=== PATIENT | female | born 1995 | race Caucasian/White ===

== ENCOUNTER 2018-06-18 15:45 | Emergency (ER) | payer BC ==
[2018-06-18 16:07] VITALS: BP 144/83
[2018-06-18] MEDS ORDERED: Phenergan 25 MG INJ ONE (16:08)
[2018-06-18] MEDS ORDERED: Sodium Chloride 0.9% 1000 ML 1,000 ML ONE (16:08)
[2018-06-18] MEDS ORDERED: Phenergan 25 MG INJ IV ONE (16:11)
[2018-06-18] MEDS ORDERED: TORAdol 30 mg Injection IV ONE (16:11)
[2018-06-18] MEDS ORDERED: Hydromorphone 1 mg/ml Ampule IV ONE (16:11)
[2018-06-18] MEDS ORDERED: Zofran 4 MG/2 ML VIAL IV ONE (16:11)
[2018-06-18] MEDS ORDERED: Sodium Chloride 0.9% 1000 ML 1,000 ML IV STA (16:11)
--- NOTE | 2018-06-18 16:11 | ERPHSYRPT ---
- History of Present Illness Time Seen by Provider: 06/18/18 16:05 Historian: patient, family Exam Limitations: no limitations Physician History: The patient is a 22-year-old female with parents complaining of a sudden onset of right sided flank and abdominal pain that began 2 hours ago. She takes control pills and does not think she is . She has been vomiting due to the pain. She feels like she has to urinate but is not able to very well. She has no past medical history except for depression. Her father states that he had appendicitis at her age and his father had appendicitis at the same age. Timing/Duration: today, hour(s) (2), sudden, worse Activities at Onset: none Quality: stabbing Abdominal Pain Onset Location: RLQ, flank (right) Severity of Pain-Max: severe Severity of Pain-Current: severe Modifying Factors: Improves With: vomiting Associated Symptoms: nausea, vomiting Previous symptoms: no prior history Allergies/Adverse Reactions: No Known Drug Allergies Allergy (Verified 06/18/18 16:07) Home Medications: No Home Meds [No Home Meds] 10/22/12 [History] Hx Influenza Vaccination/Date Given: No Hx Pneumococcal Vaccination/Date Given: No - Review of Systems Constitutional: No Fever, No Chills Eyes: No Symptoms Ears, Nose, & Throat: No Symptoms Respiratory: No Cough, No Dyspnea Cardiac: No Chest Pain, No Edema, No Syncope Abdominal/Gastrointestinal: Abdominal Pain, Nausea, Vomiting Genitourinary Symptoms: Hesitancy, No Dysuria Musculoskeletal: No Back Pain, No Neck Pain Skin: No Rash Neurological: No Dizziness, No Focal Weakness, No Sensory Changes Psychological: No Symptoms Endocrine: No Symptoms Hematologic/Lymphatic: No Symptoms Immunological/Allergic: No Symptoms All Other Systems: Reviewed and Negative - Past Medical History Pertinent Past Medical History: No Neurological History: No Pertinent History ENT History: No Pertinent History Cardiac History: No Pertinent History Respiratory History: No Pertinent History Endocrine Medical History: No Pertinent History Musculoskeletal History: No Pertinent History GI Medical History: No Pertinent History History: No Pertinent History Psycho-Social History: No Pertinent History Female Reproductive Disorders: No Pertinent History - Past Surgical History Past Surgical History: No - Social History Smoking Status: Never smoker Exposure to second hand smoke: No Drug Use: none Patient Lives Alone: No - Nursing Vital Signs Nursing Vital Signs: Initial Vital Signs Temperature 98.4 F 06/18/18 15:56 Pulse Rate 97 H 06/18/18 15:56 Respiratory Rate 20 06/18/18 15:56 Blood Pressure 144/83 06/18/18 15:56 O2 Sat by Pulse Oximetry 96 06/18/18 15:56 Pain Scale Pain Intensity 10 - Physical Exam General Appearance: moderate distress Eye Exam: PERRL/EOMI, eyes nml inspection Ears, Nose, Throat Exam: normal ENT inspection, pharynx normal, moist mucous membranes Neck Exam: normal inspection, non-tender, supple, full range of motion Respiratory Exam: normal breath sounds, lungs clear, No respiratory distress Cardiovascular Exam: regular rate/rhythm, normal heart sounds Gastrointestinal/Abdomen Exam: tenderness (right flank, RLQ) Pelvic Exam: not done Rectal Exam: not done Back Exam: normal inspection, normal range of motion, No CVA tenderness, No vertebral tenderness Extremity Exam: normal inspection, normal range of motion, pelvis stable Neurologic Exam: alert, oriented x 3, cooperative, normal mood/affect, nml cerebellar function, sensation nml, No motor deficits Skin Exam: normal color, warm, dry SpO2 Interpretation: normal Oxygen Delivery: Room Air - CT Exams Abdomen/Pelvis CT Interpretation: Tele-radiologist Report (per Dr Price), Other (5 mm calculus in distal right ureter with mild hydronephrosis) Ordered Tests: Active Orders 24 hr Category Date Time Status Clean Catch Urine Specimen STAT Care 06/18/18 16:11 Active IV Insertion STAT Care 06/18/18 16:11 Active ABDOMEN AND PELVIS W/0 CONTRAS [CT] Stat Exams 06/18/18 16:12 Taken CBC W DIFF Stat Lab 06/18/18 16:11 Completed CMP Stat Lab 06/18/18 16:11 Completed HCG QUALITATIVE,SERUM Stat Lab 06/18/18 Completed LIPASE Stat Lab 06/18/18 16:11 Completed Lactic Acid Stat Lab 06/18/18 16:18 Completed UA W/RFX UR CULTURE Stat Lab 06/18/18 16:12 Uncollected Urine Triage Profile Stat Lab 06/18/18 16:12 Uncollected Medication Summary Discontinued Medications Generic Name Dose Route Start Last Admin Trade Name Freq PRN Reason Stop Dose Admin Hydromorphone HCl 1 mg 06/18/18 16:11 06/18/18 16:22 Hydromorphone 1 Mg/Ml Ampule IV 06/18/18 16:12 1 mg STAT ONE Administration Hydromorphone HCl Confirm 06/18/18 16:14 Hydromorphone 1 Mg/Ml Ampule Administered 06/18/18 16:15 Dose 1 mg .ROUTE .STK-MED ONE Sodium Chloride Confirm 06/18/18 16:08 Sodium Chloride 0.9% 1000 Ml Administered 06/18/18 16:09 Dose 1,000 mls @ ud .ROUTE .STK-MED ONE Sodium Chloride 1,000 mls @ 999 mls/hr 06/18/18 16:11 06/18/18 16:16 Sodium Chloride 0.9% 1000 Ml IV 06/18/18 17:11 999 mls/hr .Q1H1M STA Administration Ketorolac Tromethamine 30 mg 06/18/18 16:11 06/18/18 16:21 Toradol 30 Mg Injection IV 06/18/18 16:12 30 mg STAT ONE Administration Ketorolac Tromethamine Confirm 06/18/18 16:14 Toradol 30 Mg Injection Administered 06/18/18 16:15 Dose 30 mg .ROUTE .STK-MED ONE Ondansetron HCl 4 mg 06/18/18 16:11 06/18/18 16:35 Zofran 4 Mg/2 Ml Vial IV 06/18/18 16:12 4 mg STAT ONE Administration Ondansetron HCl Confirm 06/18/18 16:34 Zofran 4 Mg/2 Ml Vial Administered 06/18/18 16:35 Dose 4 mg .ROUTE .STK-MED ONE Promethazine HCl Confirm 06/18/18 16:08 Phenergan 25 Mg Inj Administered 06/18/18 16:09 Dose 25 mg .ROUTE .STK-MED ONE Promethazine HCl 12.5 mg 06/18/18 16:11 06/18/18 16:16 Phenergan 25 Mg Inj IV 06/18/18 16:12 12.5 mg STAT ONE Administration Tamsulosin HCl 0.4 mg 06/18/18 16:13 06/18/18 16:24 Flomax 0.4 Mg PO 06/18/18 16:14 0.4 mg DAILY STA Administration Tamsulosin HCl Confirm 06/18/18 16:14 Flomax 0.4 Mg Administered 06/18/18 16:15 Dose 0.4 mg .ROUTE .STK-MED ONE Lab/Rad Data: Laboratory Result Diagrams 06/18/18 16:11 06/18/18 16:11 Laboratory Results 06/18/18 06/18/18 06/18/18 Range/Units Unknown 16:18 16:11 WBC (4.0-10.5) K/mm3 RBC (4.1-5.4) M/mm3 Hgb (12.0-16.0) gm/dl Hct (35-47) % MCV (78-100) fl MCH (26-32) pg MCHC (32-36) g/dl RDW (11.5-14.0) % Plt Count (150-450) K/mm3 MPV (6-9.5) fl Gran % (36.0-66.0) % Eos # (Auto) (0-0.5) Absolute Lymphs (auto) (1.0-4.6) Absolute Monos (auto) (0.0-1.3) Lymphocytes % (24.0-44.0) % Monocytes % (0.0-12.0) % Eosinophils % (0.00-5.0) % Basophils % (0.0-0.4) % Absolute Granulocytes (1.4-6.9) Basophils # (0-0.4) Sodium 139 (137-145) mmol/L Potassium 3.5 (3.5-5.1) mmol/L Chloride 105 (98-107) mmol/L Carbon Dioxide 25 (22-30) mmol/L Anion Gap 13.1 (5-15) MEQ/L BUN 6 L (7-17) mg/dL Creatinine 0.67 (0.52-1.04) mg/dL Estimated GFR > 60.0 ML/MIN Glucose 87 (74-106) mg/dL Lactic Acid 0.8 (0.4-2.0) Calcium 9.4 (8.4-10.2) mg/dL Total Bilirubin 0.50 (0.2-1.3) mg/dL AST 20 (14-36) U/L ALT 15 (0-35) U/L Alkaline Phosphatase 56 (38-126) U/L Serum Total Protein 7.5 (6.3-8.2) g/dL Albumin 4.6 (3.5-5.0) g/dL Lipase 42 (23-300) U/L Serum , Qual NEGATIVE (Negative) 06/18/18 Range/Units 16:11 WBC 10.5 (4.0-10.5) K/mm3 RBC 4.58 (4.1-5.4) M/mm3 Hgb 14.0 (12.0-16.0) gm/dl Hct 41.1 (35-47) % MCV 89.7 (78-100) fl MCH 30.6 (26-32) pg MCHC 34.1 (32-36) g/dl RDW 13.4 (11.5-14.0) % Plt Count 300 (150-450) K/mm3 MPV 10.2 H (6-9.5) fl Gran % 52.8 (36.0-66.0) % Eos # (Auto) 0.17 (0-0.5) Absolute Lymphs (auto) 3.70 (1.0-4.6) Absolute Monos (auto) 1.04 (0.0-1.3) Lymphocytes % 35.4 (24.0-44.0) % Monocytes % 9.9 (0.0-12.0) % Eosinophils % 1.6 (0.00-5.0) % Basophils % 0.3 (0.0-0.4) % Absolute Granulocytes 5.52 (1.4-6.9) Basophils # 0.03 (0-0.4) Sodium (137-145) mmol/L Potassium (3.5-5.1) mmol/L Chloride (98-107) mmol/L Carbon Dioxide (22-30) mmol/L Anion Gap (5-15) MEQ/L BUN (7-17) mg/dL Creatinine (0.52-1.04) mg/dL Estimated GFR ML/MIN Glucose (74-106) mg/dL Lactic Acid (0.4-2.0) Calcium (8.4-10.2) mg/dL Total Bilirubin (0.2-1.3) mg/dL AST (14-36) U/L ALT (0-35) U/L Alkaline Phosphatase (38-126) U/L Serum Total Protein (6.3-8.2) g/dL Albumin (3.5-5.0) g/dL Lipase (23-300) U/L Serum , Qual (Negative) - Progress Progress: improved Counseled pt/family regarding: lab results, diagnosis, need for follow-up, rad results - Departure Time of Disposition: 18:48 Departure Disposition: Home Clinical Impression: Kidney stone on right side Condition: Stable Critical Care Time: No Referrals: ADEN RIVERO [Primary Care Provider] - Additional Instructions: You have a kidney stone that is in your distal right ureter. It is very close to passing into your bladder. You were given Toradol 30 mg, Phenergan 12-1/2 mg , dilaudid 1 mg and fluids by IV, and Flomax 0.4 mg orally in the ER. Take [place] one to 2 tablets every 4-6 hours as needed for pain. Take Zofran 4 mg every 6 hours as needed. Stay well hydrated. Strain your urine to catch the stone. Bring the stone to your primary medical doctor for further evaluation. Prescriptions: Ondansetron ODT 4 MG [Zofran Odt 4 mg] 1 tab PO Q6H PRN PRN #10 tab.rapdis PRN Reason: Nausea/Vomiting Hydrocodone/APAP 5/325 [[place] 5/325 mg] 1 each PO Q4-6HPRN PRN #10 tablet MDD 6 PRN Reason: Pain
[2018-06-18] MEDS ORDERED: Flomax 0.4 MG PO STA (16:13)
[2018-06-18] MEDS ORDERED: Hydromorphone 1 mg/ml Ampule ONE (16:14)
[2018-06-18] MEDS ORDERED: TORAdol 30 mg Injection ONE (16:14)
[2018-06-18] MEDS ORDERED: Flomax 0.4 MG ONE (16:14)
[2018-06-18 16:23] LABS: BASOPHIL % 0.3 % (0.0-0.4); Basophil (Absolute #) 0.03 (0-0.4); Eosinophil % 1.6 % (0.00-5.0); Eosinophil (Absolute #) 0.17 (0-0.5); Granulocyte Absolute (ANC) 5.52 (1.4-6.9); Granulocytes % 52.8 % (36.0-66.0); Hematocrit 41.1 % (35-47); Lymphocytes % 35.4 % (24.0-44.0); Mean Cell Volume 89.7 fl (78-100); Mean Corpuscular Hemoglobin 30.6 pg (26-32); Mean Corpuscular Hgb Concent. 34.1 g/dl (32-36); Mean Platelet Volume 10.2 fl (6-9.5); Monocyte (Absolute #) 1.04 (0.0-1.3); Monocytes % 9.9 % (0.0-12.0); Platelet Count 300 K/mm3 (150-450); Red Blood Count 4.58 M/mm3 (4.1-5.4); Red Cell Distribution Width 13.4 % (11.5-14.0); White Blood Count 10.5 K/mm3 (4.0-10.5)
[2018-06-18] MEDS ORDERED: Zofran 4 MG/2 ML VIAL ONE (16:34)
[2018-06-18 16:36] LABS: ALBUMIN 4.6 g/dL (3.5-5.0); ALKALINE PHOSPHATASE 56 U/L (38-126); ANION GAP 13.1 MEQ/L (5-15); BLOOD UREA NITROGEN 6 mg/dL (7-17); CHLORIDE 105 mmol/L (98-107); Calcium 9.4 mg/dL (8.4-10.2); Carbon Dioxide 25 mmol/L (22-30); Creatinine 1 0.67 mg/dL (0.52-1.04); Glucose 87 mg/dL (74-106); LIPASE 42 U/L (23-300); Potassium 3.5 mmol/L (3.5-5.1); SGOT/AST 20 U/L (14-36); SGPT/ALT 15 U/L (0-35); SODIUM 139 mmol/L (137-145); Total Protein 7.5 g/dL (6.3-8.2)
[2018-06-18 19:11] VITALS: PULSE 81; O2SAT 99
--- NOTE | 2018-06-19 08:37 | XRAY ---
Indication: Flank pain. Multiple contiguous axial images obtained through the abdomen and pelvis without contrast as ordered. Comparison: None Lung bases demonstrates minimal bibasilar dependent atelectasis and left base calcified granuloma. Heart is not enlarged. There is a 5-6 mm distal right ureteral calculus just proximal to the UVJ. Proximal right ureter prominent up to 8 mm along with mild hydronephrosis consistent with obstructive uropathy. Additional right renal punctate calculus and nonobstructing left nephrocalcinosis. Noncontrasted stomach and bowel loops appear nonobstructed. Normal appendix. No free fluid/air. A few calcified splenic granulomas. Remaining liver, gallbladder, pancreas, spleen, adrenal glands, kidneys, ureters, bladder, uterus, and aorta appear unremarkable for noncontrast exam. Osseous structures intact. Impression: 5-6 mm distal right ureteral calculus producing obstructive uropathy as detailed. Additional bilateral nephrocalcinosis. CT DI 11.48
== END 2018-06-18 19:19 | disposition home or self-care (01) ==
LOC: ED 15:45
DX: N13.2 Hydronephrosis with renal and ureteral calculous obstruction (principal); R11.2 Nausea with vomiting, unspecified
CPT/HCPCS: 36000; 36415; 74176; 80053; 83605; 83690; 84703; 85025; 96360; 96374; 96375; 99284; J1170; J1885; J2405; J2550; A9270-GY

== ENCOUNTER 2019-10-12 01:03 | Emergency (ER) | payer BC ==
[2019-10-12] MEDS ORDERED: Sodium Chloride 0.9% 1000 ML 1,000 ML IV STA (01:32)
[2019-10-12] MEDS ORDERED: Zofran 4 MG/2 ML VIAL IV ONE (01:32)
--- NOTE | 2019-10-12 01:32 | ERPHSYRPT ---
- History of Present Illness Time Seen by Provider: 10/12/19 01:31 Historian: patient Exam Limitations: no limitations Patient Subjective Stated Complaint: pt states that she had intercoarse with boyfriend and soon after felf severe pain and cramping in lower abdominal pain and low back.states lower abdominal area is tender Triage Nursing Assessment: pt states she has a history of kidney stones, pt states pain is 2/10 right now but has gotten better since she left to come to the er. Physician History: 24 y/o white female presents with 2 day h/o bilat flank pain. pain shifted to suprapubic region. 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 no vag bleeding or discharge. no n/v/d Timing/Duration: day(s) (2) Activities at Onset: none Quality: sharpness, stabbing Abdominal Pain Onset Location: suprapubic Pain Radiation: no radiation Severity of Pain-Max: moderate Severity of Pain-Current: mild Modifying Factors: Improves With: nothing Associated Symptoms: denies symptoms Previous symptoms: no prior history Allergies/Adverse Reactions: No Known Drug Allergies Allergy (Verified 10/12/19 01:24) Home Medications: ARIPiprazole [Aripiprazole] 2 mg PO DAILY 10/12/19 [History] Duloxetine HCl 30 mg PO DAILY 10/12/19 [History] Hx Tetanus, Diphtheria Vaccination/Date Given: Yes Hx Influenza Vaccination/Date Given: No Hx Pneumococcal Vaccination/Date Given: No Immunizations Up to Date: Yes - Review of Systems Constitutional: No Symptoms Eyes: No Symptoms Ears, Nose, & Throat: No Symptoms Respiratory: No Symptoms Cardiac: No Symptoms Abdominal/Gastrointestinal: Abdominal Pain (bilat suprapubic), No Nausea, No Vomiting, No Diarrhea Genitourinary Symptoms: No Symptoms Musculoskeletal: No Symptoms Skin: No Symptoms Neurological: No Symptoms Psychological: No Symptoms Endocrine: No Symptoms Hematologic/Lymphatic: No Symptoms Immunological/Allergic: No Symptoms All Other Systems: Reviewed and Negative - Past Medical History Pertinent Past Medical History: No Neurological History: No Pertinent History ENT History: No Pertinent History Cardiac History: No Pertinent History Respiratory History: No Pertinent History Endocrine Medical History: No Pertinent History Musculoskeletal History: No Pertinent History GI Medical History: No Pertinent History History: No Pertinent History Psycho-Social History: No Pertinent History Female Reproductive Disorders: No Pertinent History Other Medical History: depression and anxiety, bipolar - Past Surgical History Past Surgical History: No Neuro Surgical History: No Pertinent History Cardiac: No Pertinent History Respiratory: No Pertinent History Gastrointestinal: No Pertinent History Genitourinary: No Pertinent History Musculoskeletal: No Pertinent History Female Surgical History: No Pertinent History - Social History Smoking Status: Current every day smoker How long have you smoked: 6 Exposure to second hand smoke: No Drug Use: none Patient Lives Alone: No - Female History Hx Last Menstrual Period: 09/10/19 Hx Now: (unknown) - Nursing Vital Signs Nursing Vital Signs: Initial Vital Signs Temperature 98.2 F 10/12/19 01:09 Pulse Rate 97 H 10/12/19 01:09 Respiratory Rate 18 10/12/19 01:09 Blood Pressure 109/75 10/12/19 01:09 O2 Sat by Pulse Oximetry 100 10/12/19 01:09 Pain Scale Pain Intensity 2 - Physical Exam General Appearance: no apparent distress, alert, anxiety Eye Exam: PERRL/EOMI, eyes nml inspection Ears, Nose, Throat Exam: normal ENT inspection, moist mucous membranes Neck Exam: normal inspection, non-tender, supple, full range of motion Respiratory Exam: normal breath sounds, lungs clear, airway intact, No chest tenderness, No respiratory distress Cardiovascular Exam: regular rate/rhythm, normal heart sounds, normal peripheral pulses Gastrointestinal/Abdomen Exam: soft, normal bowel sounds, tenderness (suprapubic ), No guarding, No rebound Pelvic Exam: not done Rectal Exam: not done Back Exam: normal inspection, normal range of motion, No CVA tenderness, No vertebral tenderness Extremity Exam: normal inspection, normal range of motion, pelvis stable Neurologic Exam: alert, oriented x 3, 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, 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 Skin Exam: normal color, warm, dry Lymphatic Exam: No adenopathy SpO2 Interpretation: normal SpO2: 100 O2 Delivery: Room Air - Course Nursing assessment & vital signs reviewed: Yes Ordered Tests: Active Orders 24 hr Category Date Time Status IV Insertion STAT Care 10/12/19 01:32 Active ABDOMEN AND PELVIS W/0 CONTRAS [CT] Stat Exams 10/12/19 01:32 Taken AMYLASE Stat Lab 10/12/19 01:44 Completed CBC W DIFF Stat Lab 10/12/19 01:44 Completed CMP Stat Lab 10/12/19 01:44 Completed CULTURE,URINE Stat Lab 10/12/19 01:44 Received HCG,QUALITATIVE URINE Stat Lab 10/12/19 01:44 Completed LIPASE Stat Lab 10/12/19 01:44 Completed Lactic Acid Stat Lab 10/12/19 01:32 Completed UA W/RFX UR CULTURE Stat Lab 10/12/19 01:44 Completed Medication Summary Discontinued Medications Generic Name Dose Route Start Last Admin Trade Name Celestine PRN Reason Stop Dose Admin Sodium Chloride 1,000 mls @ 999 mls/hr 10/12/19 01:32 10/12/19 01:47 Sodium Chloride 0.9% 1000 Ml IV 10/12/19 02:32 999 mls/hr .Q1H1M STA Administration Sodium Chloride Confirm 10/12/19 01:44 Sodium Chloride 0.9% 1000 Ml Administered 10/12/19 01:45 Dose 1,000 mls @ ud .ROUTE .STK-MED ONE Ondansetron HCl 4 mg 10/12/19 01:32 10/12/19 01:47 Zofran 4 Mg/2 Ml Vial IV 10/12/19 01:33 4 mg STAT ONE Administration Ondansetron HCl Confirm 10/12/19 01:44 Zofran 4 Mg/2 Ml Vial Administered 10/12/19 01:45 Dose 4 mg .ROUTE .STK-MED ONE Lab/Rad Data: Laboratory Result Diagrams 10/12/19 01:44 10/12/19 01:44 Laboratory Results 10/12/19 10/12/19 10/12/19 Range/Units 01:44 01:44 01:44 WBC (4.0-10.5) K/mm3 RBC (4.1-5.4) M/mm3 Hgb (12.0-16.0) gm/dl Hct (35-47) % MCV (78-100) fl MCH (26-32) pg MCHC (32-36) g/dl RDW (11.5-14.0) % Plt Count (150-450) K/mm3 MPV (7.5-11.0) fl Gran % (36.0-66.0) % Eos # (Auto) (0-0.5) Absolute Lymphs (auto) (1.0-4.6) Absolute Monos (auto) (0.0-1.3) Lymphocytes % (24.0-44.0) % Monocytes % (0.0-12.0) % Eosinophils % (0.00-5.0) % Basophils % (0.0-0.4) % Absolute Granulocytes (1.4-6.9) Basophils # (0-0.4) Sodium 139 (137-145) mmol/L Potassium 3.3 L (3.5-5.1) mmol/L Chloride 104 (98-107) mmol/L Carbon Dioxide 26 (22-30) mmol/L Anion Gap 12.7 (5-15) MEQ/L BUN 10 (7-17) mg/dL Creatinine 0.62 (0.52-1.04) mg/dL Estimated GFR > 60.0 ML/MIN Glucose 91 (74-106) mg/dL Lactic Acid (0.4-2.0) Calcium 9.8 (8.4-10.2) mg/dL Total Bilirubin 0.60 (0.2-1.3) mg/dL AST 26 (14-36) U/L ALT 20 (0-35) U/L Alkaline Phosphatase 74 (38-126) U/L Serum Total Protein 8.2 (6.3-8.2) g/dL Albumin 4.7 (3.5-5.0) g/dL Amylase 113 H (30-110) U/L Lipase 102 (23-300) U/L Urine Color YELLOW (YELLOW) Urine Appearance SLIGHTLY CLOUDY (CLEAR) Urine pH 7.0 (5-6) Ur Specific [place] 1.013 (1.005-1.025) Urine Protein NEGATIVE (Negative) Urine Ketones NEGATIVE (NEGATIVE) Urine Blood SMALL (0-5) Dominick/ul Urine Nitrite NEGATIVE (NEGATIVE) Urine Bilirubin NEGATIVE (NEGATIVE) Urine Urobilinogen NEGATIVE (0-1) mg/dL Ur Leukocyte Esterase TRACE (NEGATIVE) Urine WBC (Auto) 3-5 (0-5) /HPF Urine RBC (Auto) 3-5 (0-2) /HPF U Epithel Cells (Auto) RARE (FEW) /HPF Urine Bacteria (Auto) NONE SEEN (NEGATIVE) /HPF Amorphous Crystals FEW (NEGATIVE) /HPF Urine Sperm (Auto) PRESENT (NEGATIVE) /HPF Urine Culture Reflexed YES (NO) Urine Glucose NEGATIVE (NEGATIVE) mg/dL Urine HCG, Qual NEGATIVE (Negative) 01/11/20 01/11/20 Range/Units 01:44 01:32 WBC 12.0 H (4.0-10.5) K/mm3 RBC 4.81 (4.1-5.4) M/mm3 Hgb 14.5 (12.0-16.0) gm/dl Hct 42.3 (35-47) % MCV 87.9 (78-100) fl MCH 30.1 (26-32) pg MCHC 34.3 (32-36) g/dl RDW 13.4 (11.5-14.0) % Plt Count 273 (150-450) K/mm3 MPV 10.1 (7.5-11.0) fl Gran % 53.7 (36.0-66.0) % Eos # (Auto) 0.28 (0-0.5) Absolute Lymphs (auto) 3.93 (1.0-4.6) Absolute Monos (auto) 1.31 H (0.0-1.3) Lymphocytes % 32.8 (24.0-44.0) % Monocytes % 10.9 (0.0-12.0) % Eosinophils % 2.3 (0.00-5.0) % Basophils % 0.3 (0.0-0.4) % Absolute Granulocytes 6.44 (1.4-6.9) Basophils # 0.03 (0-0.4) Sodium (137-145) mmol/L Potassium (3.5-5.1) mmol/L Chloride (98-107) mmol/L Carbon Dioxide (22-30) mmol/L Anion Gap (5-15) MEQ/L BUN (7-17) mg/dL Creatinine (0.52-1.04) mg/dL Estimated GFR ML/MIN Glucose (74-106) mg/dL Lactic Acid 1.6 (0.4-2.0) Calcium (8.4-10.2) mg/dL Total Bilirubin (0.2-1.3) mg/dL AST (14-36) U/L ALT (0-35) U/L Alkaline Phosphatase (38-126) U/L Serum Total Protein (6.3-8.2) g/dL Albumin (3.5-5.0) g/dL Amylase (30-110) U/L Lipase (23-300) U/L Urine Color (YELLOW) Urine Appearance (CLEAR) Urine pH (5-6) Ur Specific [place] (1.005-1.025) Urine Protein (Negative) Urine Ketones (NEGATIVE) Urine Blood (0-5) Dominick/ul Urine Nitrite (NEGATIVE) Urine Bilirubin (NEGATIVE) Urine Urobilinogen (0-1) mg/dL Ur Leukocyte Esterase (NEGATIVE) Urine WBC (Auto) (0-5) /HPF Urine RBC (Auto) (0-2) /HPF U Epithel Cells (Auto) (FEW) /HPF Urine Bacteria (Auto) (NEGATIVE) /HPF Amorphous Crystals (NEGATIVE) /HPF Urine Sperm (Auto) (NEGATIVE) /HPF Urine Culture Reflexed (NO) Urine Glucose (NEGATIVE) mg/dL Urine HCG, Qual (Negative) - Progress Progress: improved Progress Note: 10/12/19 03:00 pt states she has very little pain now. does not want any pain meds now. ct abd/pelvis-picture c/w cystitis. bilat nonobstructing nephrolithiasis Counseled pt/family regarding: lab results, diagnosis, need for follow-up, rad results - Departure Departure Disposition: Home Clinical Impression: UTI (urinary tract infection), Cystitis Condition: Stable Critical Care Time: No Referrals: ADEN RIVERO [Primary Care Provider] - Additional Instructions: drink plenty of fluids. tylenol and ibuprofen for further management of pain. follow up with primary doctor for persistent symptoms Prescriptions: Ciprofloxacin [Cipro 500 MG] 500 mg PO BID #14 tablet
[2019-10-12] MEDS ORDERED: Sodium Chloride 0.9% 1000 ML 1,000 ML ONE (01:44)
[2019-10-12] MEDS ORDERED: Zofran 4 MG/2 ML VIAL ONE (01:44)
[2019-10-12 01:48] LABS: Absolute Neutrophil Ct (ANC) 6.44 (1.4-6.9); BASOPHIL % 0.3 % (0.0-0.4); Basophil (Absolute #) 0.03 (0-0.4); Eosinophil % 2.3 % (0.00-5.0); Eosinophil (Absolute #) 0.28 (0-0.5); Hematocrit 42.3 % (35-47); Hemoglobin 14.5 gm/dl (12.0-16.0); Lymphocyte (Absolute #) 3.93 (1.0-4.6); Lymphocytes % 32.8 % (24.0-44.0); Mean Cell Volume 87.9 fl (78-100); Mean Corpuscular Hemoglobin 30.1 pg (26-32); Mean Corpuscular Hgb Concent. 34.3 g/dl (32-36); Mean Platelet Volume 10.1 fl (7.5-11.0); Monocyte (Absolute #) 1.31 (0.0-1.3); Monocytes % 10.9 % (0.0-12.0); Neutrophil % 53.7 % (36.0-66.0); Platelet Count 273 K/mm3 (150-450); Red Blood Count 4.81 M/mm3 (4.1-5.4); Red Cell Distribution Width 13.4 % (11.5-14.0)
[2019-10-12 01:53] LABS: Amourphous Crystal FEW /HPF (NEGATIVE); Appearance SLIGHTLY CLOUDY (CLEAR); Bilirubin NEGATIVE (NEGATIVE); Blood SMALL Ery/ul (0-5); Epithelial Cells RARE /HPF (FEW); Glucose NEGATIVE (NEGATIVE); Ketones NEGATIVE (NEGATIVE); Leukocyte Esterase TRACE (NEGATIVE); Nitrite NEGATIVE (NEGATIVE); Protein,Urine Dip NEGATIVE (Negative); Specific Gravity 1.013 (1.005-1.025); Sperm PRESENT /HPF (NEGATIVE); Urobilinogen NEGATIVE mg/dL (0-1)
[2019-10-12 01:54] LABS: Bacteria NONE SEEN /HPF (NEGATIVE)
[2019-10-12 01:59] LABS: ALBUMIN 4.7 g/dL (3.5-5.0); ALKALINE PHOSPHATASE 74 U/L (38-126); AMYLASE 113 U/L (30-110); ANION GAP 12.7 MEQ/L (5-15); BLOOD UREA NITROGEN 10 mg/dL (7-17); CHLORIDE 104 mmol/L (98-107); Calcium 9.8 mg/dL (8.4-10.2); Carbon Dioxide 26 mmol/L (22-30); Creatinine 1 0.62 mg/dL (0.52-1.04); Glucose 91 mg/dL (74-106); LIPASE 102 U/L (23-300); Potassium 3.3 mmol/L (3.5-5.1); SGOT/AST 26 U/L (14-36); SGPT/ALT 20 U/L (0-35); SODIUM 139 mmol/L (137-145); Total Protein 8.2 g/dL (6.3-8.2)
[2019-10-12] MEDS ORDERED: ROCEPHIN 1 Gm-D5w 50 ml Bag** 1 G/50 ML IVPB IV STA (02:55)
[2019-10-12] MEDS ORDERED: ROCEPHIN 1 Gm-D5w 50 ml Bag** 1 G/50 ML IVPB IV ONE (02:59)
[2019-10-12 03:30] VITALS: BP 102/79; PULSE 75; O2SAT 99
--- NOTE | 2019-10-12 07:13 | XRAY ---
Indication: Pelvic and low back pain 2 days. Frequent urination and dysuria. Elevated WBC. Multiple contiguous axial images obtained through the abdomen and pelvis without contrast as ordered. Comparison: June 18, 2018. Lung bases are clear. Heart is not enlarged. Noncontrasted stomach and bowel loops appear nonobstructed. Normal appendix. There is now mild scattered colonic fecal debris throughout including the rectum. No free fluid/air. Right renal collecting system now demonstrates minimal haziness, possible inflammatory/infectious process. Remaining liver, gallbladder, pancreas, spleen, adrenal glands, kidneys, ureters, bladder, uterus, and aorta appear unremarkable for noncontrast exam. Osseous structures intact. Impression: 1. Mild fecal stasis without obstruction. 2. Right renal collecting system haziness. Rule out underlying inflammatory/infectious process. 3. Remaining CT abdomen/pelvis without contrast exam is negative. Comment: Preliminary interpretation was made by [facility]. No critical discrepancy.
== END 2019-10-12 03:29 | disposition home or self-care (01) ==
LOC: ED 01:03
DX: N30.90 Cystitis, unspecified without hematuria (principal)
CPT/HCPCS: 36000; 36415; 74176; 80053; 81001; 82150; 83605; 83690; 84703; 85025; 87086; 96365; 96374; 99284; J0696; J2405

== ENCOUNTER 2020-02-24 12:42 | Emergency (ER) | payer BC ==
[2020-02-24] MEDS ORDERED: Pepcid 20 MG VIAL IV ONE ×2 (13:21→13:29)
[2020-02-24] MEDS ORDERED: Zofran 4 MG/2 ML VIAL IV ONE (13:21)
[2020-02-24] MEDS ORDERED: Sodium Chloride 0.9% 1000 ML 1,000 ML IV STA (13:21)
[2020-02-24] MEDS ORDERED: TYLENOL 325 MG PO ONE (13:21)
--- NOTE | 2020-02-24 13:23 | ERPHSYRPT ---
- History of Present Illness Time Seen by Provider: 02/24/20 13:12 Source: patient Exam Limitations: no limitations Patient Subjective Stated Complaint: Vomiting Triage Nursing Assessment: Patient brought back to ED via w/c and transferred self to bed. Patient A+O X3. Patient's skin pink, warm and dry. Patient complains of vomiting for the past 4 days. Patient states she has been having diarrhea for 5 days. Patient's abdomen soft and round with BS X 4 present. Patient is currently 12 weeks . Patient also complains of dizziness. Physician History: 24 years old 2 para 0 at 12 weeks gestation presented in the ER with 3 to 4 days history of diarrhea and vomiting intermittently for the last 2 days, nonbilious, nonprojectile with no hematemesis. Patient is not able to hold much down. She has occasional upper abdominal cramping. No pelvic cramping, vaginal bleeding or discharge. No fever or chills reported. Denies any sick contact. Patient is feeling fatigued and tired with no energy and at times feel dizzy and lightheaded with standing up. Timing/Duration: day(s) (2), intermittent, gradual onset, worse Severity: moderate Associated Symptoms: nausea, vomiting, abdominal pain Allergies/Adverse Reactions: No Known Drug Allergies Allergy (Verified 02/24/20 13:01) Hx Tetanus, Diphtheria Vaccination/Date Given: Yes Hx Influenza Vaccination/Date Given: Yes Hx Pneumococcal Vaccination/Date Given: No Immunizations Up to Date: Yes Travel Risk - International Travel Have you traveled outside of the country in past 3 weeks: No Have you or anyone close to you been diagnosed with or: No Do your reside in a community with a known COVID-19 case?: Yes If Yes where:: [facility] - Coronavirus Screening Has patient experienced Coronavirus symptoms: No - Review of Systems Constitutional: Fatigue Eyes: No Symptoms Ears, Nose, & Throat: No Symptoms Respiratory: No Symptoms Cardiac: No Symptoms Abdominal/Gastrointestinal: Nausea, Vomiting, Diarrhea Genitourinary Symptoms: No Symptoms Musculoskeletal: No Symptoms Neurological: No Symptoms Psychological: No Symptoms Endocrine: No Symptoms Hematologic/Lymphatic: No Symptoms Immunological/Allergic: No Symptoms - Past Medical History Pertinent Past Medical History: No Neurological History: No Pertinent History ENT History: No Pertinent History Cardiac History: No Pertinent History Respiratory History: No Pertinent History Endocrine Medical History: No Pertinent History Musculoskeletal History: No Pertinent History GI Medical History: No Pertinent History History: No Pertinent History Psycho-Social History: No Pertinent History Female Reproductive Disorders: No Pertinent History Other Medical History: depression and anxiety, bipolar - Past Surgical History Past Surgical History: No Neuro Surgical History: No Pertinent History Cardiac: No Pertinent History Respiratory: No Pertinent History Gastrointestinal: No Pertinent History Genitourinary: No Pertinent History Musculoskeletal: No Pertinent History Female Surgical History: No Pertinent History - Social History Smoking Status: Never smoker How long have you smoked: 6 Exposure to second hand smoke: No Drug Use: none Patient Lives Alone: No - Female History Hx Last Menstrual Period: end nov Hx Now: Yes Expected Date of Delivery: 09/04/20 - Nursing Vital Signs Nursing Vital Signs: Initial Vital Signs Temperature 98.8 F 02/24/20 13:03 Pulse Rate 96 H 02/24/20 13:03 Respiratory Rate 18 02/24/20 13:03 Blood Pressure 120/71 02/24/20 13:03 O2 Sat by Pulse Oximetry 97 02/24/20 13:03 Pain Scale Pain Intensity 0 - Physical Exam General Appearance: no apparent distress Eye Exam: PERRL/EOMI, eyes nml inspection Ears, Nose, Throat Exam: normal ENT inspection, pharynx normal Neck Exam: normal inspection, supple, full range of motion Respiratory Exam: normal breath sounds, lungs clear Cardiovascular Exam: regular rate/rhythm, normal heart sounds Gastrointestinal/Abdomen Exam: soft, other (Hyper active bowel sounds), No tenderness Extremity Exam: normal inspection, normal range of motion Neurologic Exam: alert, oriented x 3, cooperative Skin Exam: normal color SpO2 Interpretation: normal SpO2: 97 O2 Delivery: Room Air - Course Nursing assessment & vital signs reviewed: Yes Ordered Tests: Active Orders 24 hr Category Date Time Status IV Insertion STAT Care 02/24/20 13:21 Active AMYLASE Stat Lab 02/24/20 13:29 Completed CBC W DIFF Stat Lab 02/24/20 13:29 Completed CMP Stat Lab 02/24/20 13:29 Completed CULTURE,URINE Stat Lab 02/24/20 13:29 Received LIPASE Stat Lab 02/24/20 13:29 Completed UA W/RFX UR CULTURE Stat Lab 02/24/20 13:29 Completed Medication Summary Discontinued Medications Generic Name Dose Route Start Last Admin Trade Name Freq PRN Reason Stop Dose Admin Acetaminophen 650 mg 02/24/20 13:21 02/24/20 13:32 Tylenol 325 Mg PO 02/24/20 13:22 650 mg STAT ONE Administration Acetaminophen Confirm 02/24/20 13:29 Tylenol 325 Mg Administered 02/24/20 13:30 Dose 650 mg .ROUTE .STK-MED ONE Cephalexin HCl 500 mg 02/24/20 16:04 02/24/20 16:36 Keflex 500 Mg PO 02/24/20 16:05 500 mg STAT ONE Administration Cephalexin HCl Confirm 02/24/20 16:32 Keflex 500 Mg Administered 02/24/20 16:33 Dose 500 mg .ROUTE .STK-MED ONE Famotidine 20 mg 02/24/20 13:21 02/24/20 13:32 Pepcid 20 Mg Vial IV 02/24/20 13:22 20 mg STAT ONE Administration Famotidine Confirm 02/24/20 13:29 Pepcid 20 Mg Vial Administered 02/24/20 13:30 Dose 20 mg IV .STK-MED ONE Sodium Chloride 1,000 mls @ 999 mls/hr 02/24/20 13:21 02/24/20 14:45 Sodium Chloride 0.9% 1000 Ml IV 02/24/20 14:21 Infused .Q1H1M STA Infusion Sodium Chloride Confirm 02/24/20 13:29 Sodium Chloride 0.9% 1000 Ml Administered 02/24/20 13:30 Dose 1,000 mls @ ud .ROUTE .STK-MED ONE Ondansetron HCl 4 mg 02/24/20 13:21 02/24/20 13:32 Zofran 4 Mg/2 Ml Vial IV 02/24/20 13:22 4 mg STAT ONE Administration Ondansetron HCl Confirm 02/24/20 13:29 Zofran 4 Mg/2 Ml Vial Administered 02/24/20 13:30 Dose 4 mg .ROUTE .STK-MED ONE Lab/Rad Data: Laboratory Result Diagrams 02/24/20 13:29 02/24/20 13:29 Laboratory Results 02/24/20 02/24/20 02/24/20 Range/Units 13:29 13:29 13:29 WBC 8.2 (4.0-10.5) K/mm3 RBC 4.65 (4.1-5.4) M/mm3 Hgb 13.9 (12.0-16.0) gm/dl Hct 40.6 (35-47) % MCV 87.3 (78-100) fl MCH 29.9 (26-32) pg MCHC 34.2 (32-36) g/dl RDW 13.2 (11.5-14.0) % Plt Count 207 (150-450) K/mm3 MPV 10.5 (7.5-11.0) fl Gran % 70.3 H (36.0-66.0) % Eos # (Auto) 0.14 (0-0.5) Absolute Lymphs (auto) 1.47 (1.0-4.6) Absolute Monos (auto) 0.81 (0.0-1.3) Lymphocytes % 17.9 L (24.0-44.0) % Monocytes % 9.9 (0.0-12.0) % Eosinophils % 1.7 (0.00-5.0) % Basophils % 0.2 (0.0-0.4) % Absolute Granulocytes 5.76 (1.4-6.9) Basophils # 0.02 (0-0.4) Sodium 137 (137-145) mmol/L Potassium 3.9 (3.5-5.1) mmol/L Chloride 105 (98-107) mmol/L Carbon Dioxide 22 (22-30) mmol/L Anion Gap 13.1 (5-15) MEQ/L BUN 7 (7-17) mg/dL Creatinine 0.43 L (0.52-1.04) mg/dL Estimated GFR > 60.0 ML/MIN Glucose 83 (74-106) mg/dL Calcium 9.1 (8.4-10.2) mg/dL Total Bilirubin 0.50 (0.2-1.3) mg/dL AST 28 (14-36) U/L ALT 17 (0-35) U/L Alkaline Phosphatase 65 (38-126) U/L Serum Total Protein 7.2 (6.3-8.2) g/dL Albumin 4.0 (3.5-5.0) g/dL Amylase 100 (30-110) U/L Lipase 60 (23-300) U/L Urine Color STEVAN (YELLOW) Urine Appearance CLOUDY (CLEAR) Urine pH 5.0 (5-6) Ur Specific Matthews 1.041 (1.005-1.025) Urine Protein 100 (Negative) Urine Ketones TRACE (NEGATIVE) Urine Blood NEGATIVE (0-5) Dominick/ul Urine Nitrite NEGATIVE (NEGATIVE) Urine Bilirubin NEGATIVE (NEGATIVE) Urine Urobilinogen 2 (0-1) mg/dL Ur Leukocyte Esterase MODERATE (NEGATIVE) Urine WBC (Auto) 26-50 (0-5) /HPF Urine RBC (Auto) 3-5 (0-2) /HPF U Epithel Cells (Auto) MANY (FEW) /HPF Urine Bacteria (Auto) MODERATE (NEGATIVE) /HPF U Non-Squamous Epi Cells RARE (FEW) /HPF Urine Mucus (Auto) MANY (NEGATIVE) /HPF Urine Culture Reflexed YES (NO) Urine Glucose NEGATIVE (NEGATIVE) mg/dL - Progress Progress: improved, re-examined Progress Note: 02/24/20 she is given IV fluids along with Zofran, on reevaluation feeling much improved. She does not have any episode of vomiting or diarrhea while in the ER. heart tones in 160s. No pelvic cramping or vaginal bleeding or discharge. She does have UTI and started on antibiotics. Will give Zofran to go home and recommended outpatient follow-up. Recommended increase hydration. At this point I do not think she needs any further work-up and is stable for discharge. Counseled pt/family regarding: lab results, diagnosis, need for follow-up - Departure Departure Disposition: Home Clinical Impression: Gastroenteritis UTI in Qualifiers: Trimester: first trimester Qualified Code(s): O23.41 - Unspecified infection of urinary tract in , first trimester Condition: Stable Critical Care Time: No Referrals: ADEN RIVERO [Primary Care Provider] - (1-2 days for re evaluation) Instructions: Diarrhea and Traveler's Diarrhea -- Adult, Vomiting -- Adult Additional Instructions: Drink plenty of fluids. Take Tylenol as needed. Follow-up with your OB for reevaluation in 1 to 2 days. Continue with antibiotics. Return to ER for worsening vomiting/diarrhea or if develop abdominal pain/cramping, vaginal bleeding or discharge. Prescriptions: Ondansetron ODT 4 MG [Zofran Odt 4 mg] 4 mg PO Q6H PRN PRN #10 tab.rapdis PRN Reason: Vomiting Cephalexin Mh 500 mg [Keflex 500 mg] 500 mg PO QID #40 capsule
[2020-02-24] MEDS ORDERED: Sodium Chloride 0.9% 1000 ML 1,000 ML ONE (13:29)
[2020-02-24] MEDS ORDERED: Zofran 4 MG/2 ML VIAL ONE (13:29)
[2020-02-24] MEDS ORDERED: TYLENOL 325 MG ONE (13:29)
[2020-02-24 13:30] LABS: Absolute Neutrophil Ct (ANC) 5.76 (1.4-6.9); BASOPHIL % 0.2 % (0.0-0.4); Basophil (Absolute #) 0.02 (0-0.4); Eosinophil % 1.7 % (0.00-5.0); Eosinophil (Absolute #) 0.14 (0-0.5); Hematocrit 40.6 % (35-47); Hemoglobin 13.9 gm/dl (12.0-16.0); Lymphocyte (Absolute #) 1.47 (1.0-4.6); Lymphocytes % 17.9 % (24.0-44.0); Mean Cell Volume 87.3 fl (78-100); Mean Corpuscular Hemoglobin 29.9 pg (26-32); Mean Corpuscular Hgb Concent. 34.2 g/dl (32-36); Mean Platelet Volume 10.5 fl (7.5-11.0); Monocyte (Absolute #) 0.81 (0.0-1.3); Monocytes % 9.9 % (0.0-12.0); Neutrophil % 70.3 % (36.0-66.0); Platelet Count 207 K/mm3 (150-450); Red Blood Count 4.65 M/mm3 (4.1-5.4); Red Cell Distribution Width 13.2 % (11.5-14.0); White Blood Count 8.2 K/mm3 (4.0-10.5)
[2020-02-24 13:37] LABS: Appearance CLOUDY (CLEAR); Bacteria MODERATE /HPF (NEGATIVE); Bilirubin NEGATIVE (NEGATIVE); Blood NEGATIVE Ery/ul (0-5); Epithelial Cells MANY /HPF (FEW); Glucose NEGATIVE (NEGATIVE); Ketones TRACE (NEGATIVE); Leukocyte Esterase MODERATE (NEGATIVE); Mucus MANY /HPF (NEGATIVE); Nitrite NEGATIVE (NEGATIVE); Non-Squamous Epithelial Cells RARE /HPF (FEW); Protein,Urine Dip 100 (Negative); Specific Gravity 1.041 (1.005-1.025); Urobilinogen 2 mg/dL (0-1); WBC 26-50 /HPF (0-5)
[2020-02-24 13:43] LABS: ALKALINE PHOSPHATASE 65 U/L (38-126); AMYLASE 100 U/L (30-110); ANION GAP 13.1 MEQ/L (5-15); BLOOD UREA NITROGEN 7 mg/dL (7-17); CHLORIDE 105 mmol/L (98-107); Calcium 9.1 mg/dL (8.4-10.2); Carbon Dioxide 22 mmol/L (22-30); Creatinine 1 0.43 mg/dL (0.52-1.04); Glucose 83 mg/dL (74-106); LIPASE 60 U/L (23-300); Potassium 3.9 mmol/L (3.5-5.1); SGOT/AST 28 U/L (14-36); SGPT/ALT 17 U/L (0-35); SODIUM 137 mmol/L (137-145); Total Protein 7.2 g/dL (6.3-8.2)
[2020-02-24] MEDS ORDERED: KEFLEX 500 MG PO ONE (16:04)
[2020-02-24] MEDS ORDERED: KEFLEX 500 MG ONE (16:32)
[2020-02-24 16:43] VITALS: BP 109/70; PULSE 93
[2020-02-24 22:15] VITALS: O2SAT 97
== END 2020-02-24 16:49 | disposition home or self-care (01) ==
LOC: ED 12:42
DX: K52.9 Noninfective gastroenteritis and colitis, unspecified (principal); O23.41 Unspecified infection of urinary tract in pregnancy, first trimester
CPT/HCPCS: 36000; 36415; 80053; 81001; 82150; 83690; 85025; 87086; 96360; 96374; 96375; 99284; J2405; A9270-GY

== ENCOUNTER 2020-04-13 15:36 | Emergency (ER) | payer BC ==
[2020-04-13] MEDS ORDERED: Sodium Chloride 0.9% 1000 ML 1,000 ML IV STA (15:56)
[2020-04-13] MEDS ORDERED: Sodium Chloride 0.9% 1000 ML 1,000 ML ONE (16:21)
--- NOTE | 2020-04-13 16:33 | ERPHSYRPT ---
- History of Present Illness Time Seen by Provider: 04/13/20 15:48 Source: patient Exam Limitations: no limitations Patient Subjective Stated Complaint: Pt states "I am having abdominal cramping and back pain. I feel dizzy and not quite right.:" Triage Nursing Assessment: Pt presented alert and oriented X 3, skin pwd Pt ambulates with an upright steady gait, able to speak in clear full sentences pt in no apparent respiratory distress. 1 para0 Physician History: Patient is a 24-year-old female G1, P0, currently 19 weeks and 3 days who presents to our ED for evaluation of intermittent pelvic cramping and back pain. Patient added that she is a "little dizzy". Symptoms started today. Patient states she has been experiencing some vaginal discharge for the past 2 days. No fever. No trauma. Patient is mildly nauseous. Patient did vomit several times as well. She admits to loose stools. Patient's last ultrasound was at 6 weeks gestational age. Patient states all was normal at that time. Symptoms are mild to moderate intensity. No specific worsening or improving factors. Patient is otherwise healthy. Patient voices no other complaints at this time. Timing/Duration: today Severity: moderate Modifying Factors: Improves With: nothing Associated Symptoms: nausea, vomiting, No abdominal pain, No weakness Allergies/Adverse Reactions: No Known Drug Allergies Allergy (Verified 02/24/20 13:01) Home Medications: ARIPiprazole [Aripiprazole] 2 mg PO DAILY 04/13/20 [History] Hx Tetanus, Diphtheria Vaccination/Date Given: No Hx Influenza Vaccination/Date Given: Yes Hx Pneumococcal Vaccination/Date Given: No Immunizations Up to Date: Yes Travel Risk - International Travel Have you traveled outside of the country in past 3 weeks: No - Coronavirus Screening Are you exhibiting any of the following symptoms?: No Close contact with a COVID-19 positive Pt in past 14-21 Days: No - Review of Systems Constitutional: No Symptoms, No Fever, No Chills Eyes: No Symptoms Ears, Nose, & Throat: No Symptoms Respiratory: No Symptoms, No Cough, No Dyspnea Cardiac: No Symptoms, No Chest Pain, No Edema, No Syncope Abdominal/Gastrointestinal: No Symptoms, No Abdominal Pain, No Nausea, No Vomiting, No Diarrhea Genitourinary Symptoms: No Symptoms, No Dysuria Musculoskeletal: No Symptoms, No Back Pain, No Neck Pain Skin: No Symptoms, No Rash Neurological: No Symptoms, No Dizziness, No Focal Weakness, No Sensory Changes Psychological: No Symptoms Endocrine: No Symptoms Hematologic/Lymphatic: No Symptoms Immunological/Allergic: No Symptoms All Other Systems: Reviewed and Negative - Past Medical History Pertinent Past Medical History: No Neurological History: No Pertinent History ENT History: No Pertinent History Cardiac History: No Pertinent History Respiratory History: No Pertinent History Endocrine Medical History: No Pertinent History Musculoskeletal History: No Pertinent History GI Medical History: No Pertinent History History: No Pertinent History Psycho-Social History: No Pertinent History Female Reproductive Disorders: No Pertinent History Other Medical History: depression and anxiety, bipolar - Past Surgical History Past Surgical History: No Neuro Surgical History: No Pertinent History Cardiac: No Pertinent History Respiratory: No Pertinent History Gastrointestinal: No Pertinent History Genitourinary: No Pertinent History Musculoskeletal: No Pertinent History Female Surgical History: No Pertinent History - Social History Smoking Status: Former smoker How long have you smoked: 6 Exposure to second hand smoke: No Drug Use: none Patient Lives Alone: No - Female History Hx Last Menstrual Period: 11/26/2019 Hx Now: Yes Expected Date of Delivery: 09/04/20 - Nursing Vital Signs Nursing Vital Signs: Initial Vital Signs Temperature 98.4 F 04/13/20 15:42 Pulse Rate 104 H 04/13/20 15:42 Respiratory Rate 20 04/13/20 15:42 Blood Pressure 125/74 04/13/20 15:42 O2 Sat by Pulse Oximetry 100 04/13/20 15:42 Pain Scale Pain Intensity 2 - Physical Exam General Appearance: no apparent distress, alert Eye Exam: PERRL/EOMI, eyes nml inspection Ears, Nose, Throat Exam: normal ENT inspection, TMs normal, pharynx normal, moist mucous membranes Neck Exam: normal inspection, non-tender, supple, full range of motion Respiratory Exam: normal breath sounds, lungs clear, No respiratory distress Cardiovascular Exam: regular rate/rhythm, normal heart sounds, normal peripheral pulses Gastrointestinal/Abdomen Exam: soft, normal bowel sounds, other (Gravid abdomen.), No tenderness, No mass Pelvic Exam: normal external exam, No adnexal tenderness, No adnexal mass, No mass, No cervical motion tenderness, No vaginal bleeding, No uterine tenderness, No vaginal discharge Back Exam: normal inspection, normal range of motion, No CVA tenderness, No vertebral tenderness Extremity Exam: normal inspection, normal range of motion, pelvis stable Neurologic Exam: alert, oriented x 3, cooperative, normal mood/affect, nml cerebellar function, nml station & gait, sensation nml, No motor deficits Skin Exam: normal color, warm, dry, No rash Lymphatic Exam: No adenopathy SpO2 Interpretation: normal SpO2: 100 O2 Delivery: Room Air - Course Nursing assessment & vital signs reviewed: Yes - Radiology Ultrasound Exam OB Ultrasound: discussed w/radiologist (Single viable intrauterine with mean gestational age of 19 weeks and 4 days. Expected date of confinement is September 03, 2020 prominent cisterna magna that may be followed up later in the .) Ordered Tests: Active Orders 24 hr Category Date Time Status IV Insertion STAT Care 04/13/20 15:56 Active OB >14 WKS 1st GESTATION [US] Stat Exams 04/13/20 16:04 Completed CBC W DIFF Stat Lab 04/13/20 16:20 Completed CMP Stat Lab 04/13/20 16:20 Completed LIPASE Stat Lab 04/13/20 16:20 Completed Wet Prep Stat Lab 04/13/20 16:48 Received Medication Summary Discontinued Medications Generic Name Dose Route Start Last Admin Trade Name Marcosq PRN Reason Stop Dose Admin Sodium Chloride 1,000 mls @ 999 mls/hr 04/13/20 15:56 04/13/20 17:32 Sodium Chloride 0.9% 1000 Ml IV 04/13/20 16:56 Infused .Q1H1M STA Infusion Sodium Chloride Confirm 04/13/20 16:21 Sodium Chloride 0.9% 1000 Ml Administered 04/13/20 16:22 Dose 1,000 mls @ ud .ROUTE .[facility] Lab/Rad Data: Laboratory Result Diagrams 04/13/20 16:20 04/13/20 16:20 Laboratory Results 04/13/20 04/13/20 Range/Units 16:20 16:20 WBC 9.8 (4.0-10.5) K/mm3 RBC 4.15 (4.1-5.4) M/mm3 Hgb 12.4 (12.0-16.0) gm/dl Hct 37.1 (35-47) % MCV 89.4 (78-100) fl MCH 29.9 (26-32) pg MCHC 33.4 (32-36) g/dl RDW 14.0 (11.5-14.0) % Plt Count 202 (150-450) K/mm3 MPV 10.4 (7.5-11.0) fl Gran % 68.8 H (36.0-66.0) % Eos # (Auto) 0.21 (0-0.5) Absolute Lymphs (auto) 2.00 (1.0-4.6) Absolute Monos (auto) 0.85 (0.0-1.3) Lymphocytes % 20.3 L (24.0-44.0) % Monocytes % 8.6 (0.0-12.0) % Eosinophils % 2.1 (0.00-5.0) % Basophils % 0.2 (0.0-0.4) % Absolute Granulocytes 6.75 (1.4-6.9) Basophils # 0.02 (0-0.4) Sodium 136 L (137-145) mmol/L Potassium 3.4 L (3.5-5.1) mmol/L Chloride 107 (98-107) mmol/L Carbon Dioxide 22 (22-30) mmol/L Anion Gap 9.6 (5-15) MEQ/L BUN 6 L (7-17) mg/dL Creatinine 0.41 L (0.52-1.04) mg/dL Estimated GFR > 60.0 ML/MIN Glucose 77 (74-106) mg/dL Calcium 8.9 (8.4-10.2) mg/dL Total Bilirubin 0.30 (0.2-1.3) mg/dL AST 22 (14-36) U/L ALT 11 (0-35) U/L Alkaline Phosphatase 70 (38-126) U/L Serum Total Protein 6.7 (6.3-8.2) g/dL Albumin 3.8 (3.5-5.0) g/dL Lipase 80 (23-300) U/L - Progress Progress: improved Progress Note: 04/13/20 18:52 Patient reassessed. She feels well. No cramping while in our ED. Telemetry work-up negative. Ultrasound shows no large cisterna magna. Patient was given a copy of the CD for her ultrasound. Patient requesting discharge. 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 Counseled pt/family regarding: lab results, diagnosis, need for follow-up, rad results - Departure Departure Disposition: Home Clinical Impression: Pelvic cramping Condition: Stable Critical Care Time: No Referrals: ADEN RIVERO [Primary Care Provider] - Additional Instructions: Discharge/Care Plan ELVER VELA was seen on 04/13/20 in the Emergency Room. The patient was counseled regarding Diagnosis,Lab results, Imaging studies, need for follow up and when to return to the Emergency Room. Prescriptions given: Discharge Note I have spoken with the patient and/or caregivers. I have explained the patient's condition, diagnosis and treatment plan based on the information available to me at this time. I have answered the patient's and/or caregiver's questions and addressed any concerns. The patient and/or caregivers have as good understanding of the patient's diagnosis, condition and treatment plan as can be expected at this point. The vital signs have been stable. The patient's condition is stable and appropriate for discharge from the emergency department. The patient will pursue further outpatient evaluation with the primary care physician or other designated or consulting physician as outlined in the discharge instructions. The patient and/or caregivers are agreeable to this plan of care and follow-up instructions have been explained in detail. The patient and/or caregivers have received these instruction. The patient/and or caregivers are aware that any significant change in condition or worsening of symptoms should prompt an immediate return to this or the closest emergency department or call 911.
[2020-04-13 16:35] LABS: Absolute Neutrophil Ct (ANC) 6.75 (1.4-6.9); BASOPHIL % 0.2 % (0.0-0.4); Basophil (Absolute #) 0.02 (0-0.4); Eosinophil % 2.1 % (0.00-5.0); Eosinophil (Absolute #) 0.21 (0-0.5); Hematocrit 37.1 % (35-47); Hemoglobin 12.4 gm/dl (12.0-16.0); Lymphocytes % 20.3 % (24.0-44.0); Mean Cell Volume 89.4 fl (78-100); Mean Corpuscular Hemoglobin 29.9 pg (26-32); Mean Corpuscular Hgb Concent. 33.4 g/dl (32-36); Mean Platelet Volume 10.4 fl (7.5-11.0); Monocyte (Absolute #) 0.85 (0.0-1.3); Monocytes % 8.6 % (0.0-12.0); Neutrophil % 68.8 % (36.0-66.0); Platelet Count 202 K/mm3 (150-450); Red Blood Count 4.15 M/mm3 (4.1-5.4); White Blood Count 9.8 K/mm3 (4.0-10.5)
[2020-04-13 16:47] LABS: ALBUMIN 3.8 g/dL (3.5-5.0); ALKALINE PHOSPHATASE 70 U/L (38-126); ANION GAP 9.6 MEQ/L (5-15); BLOOD UREA NITROGEN 6 mg/dL (7-17); CHLORIDE 107 mmol/L (98-107); Calcium 8.9 mg/dL (8.4-10.2); Carbon Dioxide 22 mmol/L (22-30); Creatinine 1 0.41 mg/dL (0.52-1.04); Glucose 77 mg/dL (74-106); LIPASE 80 U/L (23-300); Potassium 3.4 mmol/L (3.5-5.1); SGOT/AST 22 U/L (14-36); SGPT/ALT 11 U/L (0-35); SODIUM 136 mmol/L (137-145); Total Protein 6.7 g/dL (6.3-8.2)
--- NOTE | 2020-04-13 17:24 | XRAY ---
Indication: Abdomen pain. Two-dimensional OB ultrasound performed. Comparison: None There is a single viable intrauterine in cephalic presentation. Normal 4 chamber heart with heart rate 161 bpm. Normal three-vessel cord and cord insertion. Prominent cisterna magna up to 6 mm. Remaining visualized spine, stomach, kidneys, and bladder are unremarkable. Posterior placenta without abruption/previa. BPD measures 4.61 cm corresponding to 20 weeks 0 days. HC measures 17.17 cm corresponding to 19 weeks 5 days. AC measures 13.90 cm corresponding to 19 weeks 2 days. FL measures 2.92 cm corresponding to 19 weeks 0 days. BRYCE is 11.6 cm. Impression: Single viable intrauterine with mean gestational age 19 weeks 4 days. Expected date confinement is September 03, 2020. Prominent cisterna magna that may be followed up later in the . Comment: Preliminary report was given.
[2020-04-13 18:48] VITALS: BP 98/60; PULSE 80
[2020-04-13 18:51] VITALS: O2SAT 100
[2020-04-13 19:13] LABS: Bacteria Many; Clue Cells Few
[2020-04-13 19:14] LABS: Red Blood Cells None Seen; Trichomonas None Seen; White Blood Cells Many; Yeast None Seen
[2020-04-13 19:46] LABS: CHLAMYDIA DNA NOT DETECTED (NEGATIVE); GC DNA Probe NOT DETECTED (NEGATIVE)
== END 2020-04-13 19:00 | disposition home or self-care (01) ==
LOC: ED 15:36
DX: O26.892 Other specified pregnancy related conditions, second trimester (principal); Z3A.19 19 weeks gestation of pregnancy; R10.2 Pelvic and perineal pain; R42 Dizziness and giddiness
CPT/HCPCS: 36000; 36415; 76805; 80053; 83690; 85025; 87210; 87491; 87591; 96360; 99284

== ENCOUNTER 2020-05-29 14:51 | Observation (INO) | payer BC ==
[2020-05-29 15:51] VITALS: BP 123/73; PULSE 106
[2020-05-29 16:01] LABS: Appearance SLIGHTLY CLOUDY (CLEAR); Bacteria RARE /HPF (NEGATIVE); Bilirubin NEGATIVE (NEGATIVE); Blood NEGATIVE Ery/ul (0-5); Epithelial Cells RARE /HPF (FEW); Glucose NEGATIVE (NEGATIVE); Ketones MODERATE (NEGATIVE); Leukocyte Esterase SMALL (NEGATIVE); Mucus SLIGHT /HPF (NEGATIVE); Nitrite NEGATIVE (NEGATIVE); Protein,Urine Dip NEGATIVE (Negative); Specific Gravity 1.021 (1.005-1.025); Urobilinogen NEGATIVE mg/dL (0-1)
[2020-05-29] MEDS ORDERED: Lactated Ringers 1,000 ML IV ONE (16:08)
[2020-05-29] MEDS ORDERED: Zofran 4 MG/2 ML VIAL IV STA (16:09)
[2020-05-29 17:27] LABS: Amphetamine,Urine POSITIVE (NEGATIVE); Barbiturate,Urine NEGATIVE (NEGATIVE); Benzodiazepine,Urine NEGATIVE (NEGATIVE); Cocaine,Urine NEGATIVE (NEGATIVE); Methadone,Urine NEGATIVE (NEGATIVE); Opiate,Urine NEGATIVE (NEGATIVE); PCP,Urine NEGATIVE (NEGATIVE); THC,Urine NEGATIVE (NEGATIVE)
== END 2020-05-29 16:43 | disposition home or self-care (01) ==
LOC: OB 14:51
PROVIDERS: ADMIT Family Medicine; ATTEND Family Medicine
DX: Z34.82 Encounter for supervision of other normal pregnancy, second trimester (principal)
CPT/HCPCS: 80307; 81001; 84112; G0378

== ENCOUNTER 2020-10-11 20:04 | Emergency (ER) | payer BC ==
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
[2020-10-11] MEDS ORDERED: TORAdol 30 mg Injection IM ONE (21:39)
[2020-10-11] MEDS ORDERED: TORAdol 30 mg Injection ONE (21:40)
[2020-10-11 21:47] VITALS: BP 141/87; PULSE 80
[2020-10-12 03:14] VITALS: O2SAT 99
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
== END 2020-10-11 21:59 | disposition home or self-care (01) ==
LOC: ED 20:04
DX: S16.1XXA Strain of muscle, fascia and tendon at neck level, initial encounter (principal); G44.309 Post-traumatic headache, unspecified, not intractable; V40.6XXA Car passenger injured in collision with pedestrian or animal in traffic accident, initial encounter
CPT/HCPCS: 70450; 72125; 96372; 99284; J1885

== ENCOUNTER 2021-07-23 06:02 | Day surgery (SDC) | payer BC ==
[2021-07-23] MEDS ORDERED: Lactated Ringers 1,000 ML IV SCH (06:30)
[2021-07-23] MEDS ORDERED: Zofran 4 MG/2 ML VIAL IV STA (07:18)
[2021-07-23] MEDS ORDERED: Zofran 4 MG/2 ML VIAL ONE (07:20)
[2021-07-23] MEDS ORDERED: Versed 2 MG/2 ML Injection ONE (07:28)
[2021-07-23] MEDS ORDERED: Xylocaine-Mpf 2% 5 Ml Vial ONE (07:30)
[2021-07-23] MEDS ORDERED: DIPRIVAN 200 MG/20 ML IV ONE ×2 (07:30→08:05)
--- NOTE | 2021-07-23 08:05 | OP ---
SURGERY DATE/TIME: 07/23/2021 2822 PREOPERATIVE DIAGNOSIS: Chronic nausea and vomiting. POSTOPERATIVE DIAGNOSIS: NSAID-type gastropathy. PROCEDURE: Esophagogastroduodenoscopy with cold forceps biopsy. SURGEON: Dr. Garvin. ANESTHESIA: Medications were given by the anesthesia department. BRIEF HISTORY: The patient is a 25-year-old white female who reports she has been having trouble with vomiting, bloating and gas for the past three months. She reports taking Tums for help with this which helped somewhat but denies taking any proton pump inhibitor or H2 summer medication for the problem. The patient does admit to taking Excedrin for headaches. The patient was described the risks of the procedure including the risk of perforation, sore throat, vocal cord injury, phlebitis, untoward reaction to medication. The patient verbalized her understanding and desired to have the procedure performed. DESCRIPTION OF PROCEDURE: The patient was given the medications by the anesthesia department. She had continuous pulse oximetry, ECG monitoring, intermittent blood pressure monitoring and tidal CO2 monitoring during the examination. She was placed in the left lateral decubitus position. A bite block was placed and the flexible Olympus gastroscope was used to intubate the oropharynx. A view of the larynx was obtained and was normal. The scope was easily introduced in the esophagus which appeared to be normal throughout its length. The stomach was entered. The gastric sun was suctioned dry and the stomach was insufflated and appearance of NSAID-type gastropathy was noted to the stomach. The scope was passed along the greater curvature of the stomach to the antrum. The pylorus was intubated. Duodenum inspected and found to be somewhat erythematous as well. The scope is withdrawn towards the stomach. A retroflex view was obtained of the lesser curvature, fundus and cardia regions of the stomach and these appeared to be essentially normal. The scope was then redirected towards the gastric antrum and biopsies were obtained to rule out the presence of Helicobacter pylori-type organisms and to confirm the presence of chemical gastropathy.
[2021-07-23 08:11] VITALS: O2SAT 99
[2021-07-23 08:42] VITALS: BP 117/73; PULSE 93
== END 2021-07-23 08:50 | disposition home or self-care (01) ==
LOC: SDC 06:02
PROVIDERS: ATTEND Family Medicine
DX: K31.9 Disease of stomach and duodenum, unspecified (principal); R11.2 Nausea with vomiting, unspecified; T39.395A Adverse effect of other nonsteroidal anti-inflammatory drugs [NSAID], initial encounter
CPT/HCPCS: 84703; 88305; J2250; J2405; J2704

== ENCOUNTER 2021-10-27 02:42 | Emergency (ER) | payer BC ==
--- NOTE | 2021-10-27 02:47 | ERPHSYRPT ---
- History of Present Illness Time Seen by Provider: 10/27/21 02:47 Source: patient Exam Limitations: no limitations Physician History: This is a 26-year-old white female who has history of anxiety, bipolar disorder and depression and has been exposed to her parents who both tested positive for COVID-19 infection within the last couple weeks. Patient symptoms of recurrent, multiple episodes of nausea, vomiting and diarrhea was rapid in onset approximately 10 hours ago. She has no chest pain. She has no shortness of breath. She states she has no significant cough. She does have myalgias and arthralgias. Timing/Duration: hour(s) (10) Cough Quality/Degree: no cough Possible Cause: illness exposure Associated Symptoms: muscle aches Allergies/Adverse Reactions: No Known Drug Allergies Allergy (Verified 10/27/21 02:47) Home Medications: Dextroamphetamine/Amphetamine [Adderall 30 mg Tablet] 1 tab PO BID PRN 06/08/21 [History] lamoTRIgine [Lamictal] 25 mg PO DAILY 07/23/21 [History] Norgestimate-Ethinyl Estradiol [Tri Femynor 28 Tablet] 1 tab PO DAILY 10/27/21 [History] Hx Tetanus, Diphtheria Vaccination/Date Given: Yes Hx Influenza Vaccination/Date Given: Yes Hx Pneumococcal Vaccination/Date Given: No Travel Risk - International Travel Have you traveled outside of the country in past 3 weeks: No - Coronavirus Screening Are you exhibiting any of the following symptoms?: Yes Symptoms: Vomiting/Diarrhea, Headaches/Body Aches/Fatigue Close contact with a COVID-19 positive Pt in past 14-21 Days: Yes - Review of Systems Constitutional: Weakness Eyes: No Symptoms Ears, Nose, & Throat: No Symptoms Respiratory: No Symptoms Cardiac: No Symptoms Abdominal/Gastrointestinal: Nausea, Vomiting, Diarrhea Genitourinary Symptoms: No Symptoms Musculoskeletal: No Symptoms Skin: No Symptoms Neurological: No Symptoms Psychological: No Symptoms Endocrine: No Symptoms Hematologic/Lymphatic: No Symptoms Immunological/Allergic: No Symptoms All Other Systems: Reviewed and Negative - Past Medical History Pertinent Past Medical History: No Neurological History: No Pertinent History ENT History: No Pertinent History Cardiac History: No Pertinent History Respiratory History: Other Endocrine Medical History: No Pertinent History Musculoskeletal History: No Pertinent History GI Medical History: Other History: No Pertinent History Psycho-Social History: Anxiety, Bipolar, Depression Female Reproductive Disorders: No Pertinent History Other Medical History: Current everyday smoker. Hx of stomach pain and vomiting after meals. Pt bruises easily. - Past Surgical History Past Surgical History: Yes Neuro Surgical History: No Pertinent History Cardiac: No Pertinent History Respiratory: No Pertinent History Gastrointestinal: No Pertinent History Genitourinary: No Pertinent History Musculoskeletal: No Pertinent History Female Surgical History: Section Other Surgical History: x 1. - Social History Smoking Status: Current every day smoker How long have you smoked: 8 years Exposure to second hand smoke: No Drug Use: none Patient Lives Alone: No Significant Family History: no pertinent family hx - Nursing Vital Signs Nursing Vital Signs: Initial Vital Signs Temperature 97 F 10/27/21 02:50 Pulse Rate 118 H 10/27/21 02:50 Respiratory Rate 19 10/27/21 02:50 Blood Pressure 140/72 10/27/21 02:50 O2 Sat by Pulse Oximetry 100 10/27/21 02:50 Pain Scale Pain Intensity 0 - Physical Exam General Appearance: mild distress, alert, anxiety Eye Exam: PERRL/EOMI, eyes nml inspection Ears, Nose, Throat Exam: normal ENT inspection, moist mucous membranes Neck Exam: normal inspection, non-tender, supple, full range of motion Respiratory Exam: normal breath sounds, lungs clear, airway intact, No chest tenderness, No respiratory distress Cardiovascular Exam: regular rate/rhythm, normal heart sounds, normal peripheral pulses Gastrointestinal/Abdomen Exam: soft, normal bowel sounds, No tenderness Pelvic Exam: not done Rectal Exam: not done Back Exam: normal inspection, normal range of motion, No CVA tenderness, No vertebral tenderness Extremity Exam: normal inspection, normal range of motion, pelvis stable Neurologic Exam: alert, oriented x 3, cooperative, cardiac cath technologist II-XII nml as tested, normal mood/affect, nml cerebellar function, nml station & gait, sensation nml Skin Exam: normal color, warm, dry Lymphatic Exam: No adenopathy SpO2 Interpretation: normal O2 Delivery: Room Air - Course Nursing assessment & vital signs reviewed: Yes Ordered Tests: Active Orders 24 hr Category Date Time Status IV Insertion STAT Care 10/27/21 03:01 Active Isolation, Initiate & Maintain STAT Care 10/27/21 03:01 Active AMYLASE Stat Lab 10/27/21 03:18 Completed BLOOD CULTURE Stat Lab 10/27/21 03:18 Received BLOOD CULTURE Stat Lab 10/27/21 03:20 Received CBC W DIFF Stat Lab 10/27/21 03:19 Completed CMP Stat Lab 10/27/21 03:18 Completed COVID AG-BINAX NOW RAPID TEST Stat Lab 10/27/21 03:20 Completed Ferritin Stat Lab 10/27/21 03:18 Completed HCG,QUALITATIVE URINE Stat Lab 10/27/21 03:20 Completed INFLUENZA A+B DILIP Stat Lab 10/27/21 03:20 Completed LDH-LACTATE DEHYDROGENASE Stat Lab 10/27/21 03:18 Completed LIPASE Stat Lab 10/27/21 03:18 Completed Lactic Acid Stat Lab 10/27/21 03:01 Completed Manual Differential NC Stat Lab 10/27/21 03:19 Completed [place] Screen Stat Lab 10/27/21 03:18 Completed UA W/RFX UR CULTURE Stat Lab 10/27/21 04:11 Completed Medication Summary Discontinued Medications Generic Name Dose Route Start Last Admin Trade Name Freq PRN Reason Stop Dose Admin Sodium Chloride 1,000 mls @ 999 mls/hr 10/27/21 03:01 10/27/21 04:12 Sodium Chloride 0.9% 1000 Ml IV 10/27/21 04:01 Infused .Q1H1M STA Infusion Sodium Chloride Confirm 10/27/21 03:01 Sodium Chloride 0.9% 1000 Ml Administered 10/27/21 03:02 Dose 1,000 mls @ ud .ROUTE .STK-MED ONE Sodium Chloride 1,000 mls @ 999 mls/hr 10/27/21 04:38 10/27/21 05:45 Sodium Chloride 0.9% 1000 Ml IV 10/27/21 05:38 Infused .Q1H1M STA Infusion Sodium Chloride Confirm 10/27/21 04:37 Sodium Chloride 0.9% 1000 Ml Administered 10/27/21 04:38 Dose 1,000 mls @ ud .ROUTE .STK-MED ONE Prochlorperazine Edisylate 10 mg 10/27/21 03:01 10/27/21 03:10 Prochlorperazine Edisylate 10 Mg/2 Ml Vial IV 10/27/21 03:02 10 mg STAT ONE Administration Prochlorperazine Edisylate Confirm 10/27/21 03:01 Prochlorperazine Edisylate 10 Mg/2 Ml Vial Administered 01/26/22 03:02 Dose 10 mg .ROUTE .STK-MED ONE Lab/Rad Data: Laboratory Result Diagrams 10/27/21 03:19 10/27/21 03:18 Laboratory Results 10/27/21 10/27/21 10/27/21 Range/Units 04:11 03:20 03:20 WBC (4.0-10.5) K/mm3 RBC (4.1-5.4) M/mm3 Hgb (12.0-16.0) gm/dl Hct (35-47) % MCV (78-100) fl MCH (26-32) pg MCHC (32-36) g/dl RDW (11.5-14.0) % Plt Count (150-450) K/mm3 MPV (7.5-11.0) fl Segmented Neutrophils (36.0-66.0) % Band Neutrophils (0.0-2.0) % Lymphocytes (Manual) (24-44) % Monocytes (Manual) (0.0-12.0) % Eosinophils (Manual) (0.00-3.0) % Atypical Lymphocytes % Platelet Estimate (NORMAL) RBC Morphology Sodium (137-145) mmol/L Potassium (3.5-5.1) mmol/L Chloride (98-107) mmol/L Carbon Dioxide (22-30) mmol/L Anion Gap (5-15) MEQ/L BUN (7-17) mg/dL Creatinine (0.52-1.04) mg/dL Estimated GFR ML/MIN Glucose (74-106) mg/dL Lactic Acid (0.4-2.0) Calcium (8.4-10.2) mg/dL Ferritin (6.24-137) ng/mL Total Bilirubin (0.2-1.3) mg/dL AST (14-36) U/L ALT (0-35) U/L Alkaline Phosphatase (38-126) U/L Lactate Dehydrogenase (120-246) U/L Serum Total Protein (6.3-8.2) g/dL Albumin (3.5-5.0) g/dL Amylase (30-110) U/L Lipase (23-300) U/L Urine Color DARK YELLOW (YELLOW) Urine Appearance SLIGHTLY CLOUDY (CLEAR) Urine pH 5.0 (5-6) Ur Specific [place] 1.029 (1.005-1.025) Urine Protein 30 (Negative) Urine Ketones SMALL (NEGATIVE) Urine Blood NEGATIVE (0-5) Dominick/ul Urine Nitrite NEGATIVE (NEGATIVE) Urine Bilirubin NEGATIVE (NEGATIVE) Urine Urobilinogen NEGATIVE (0-1) mg/dL Ur Leukocyte Esterase NEGATIVE (NEGATIVE) Urine WBC (Auto) 0-2 (0-5) /HPF Urine RBC (Auto) 0-2 (0-2) /HPF U Epithel Cells (Auto) RARE (FEW) /HPF Urine Bacteria (Auto) RARE (NEGATIVE) /HPF Urine Mucus (Auto) SLIGHT (NEGATIVE) /HPF Urine Culture Reflexed NO (NO) Urine Glucose NEGATIVE (NEGATIVE) mg/dL Urine HCG, Qual NEGATIVE (Negative) Monoscreen (Negative) Influenza Type A Ag NEGATIVE (NEGATIVE) Influenza Type B Ag NEGATIVE (NEGATIVE) SARS-CoV-2 Ag (Rapid) NEGATIVE (NEGATIVE) 10/27/21 10/27/21 10/27/21 Range/Units 03:19 03:18 03:18 WBC 23.4 H (4.0-10.5) K/mm3 RBC 5.81 H (4.1-5.4) M/mm3 Hgb 17.3 H (12.0-16.0) gm/dl Hct 51.9 H (35-47) % MCV 89.3 (78-100) fl MCH 29.8 (26-32) pg MCHC 33.3 (32-36) g/dl RDW 13.7 (11.5-14.0) % Plt Count 321 (150-450) K/mm3 MPV 10.0 (7.5-11.0) fl Segmented Neutrophils 87 H (36.0-66.0) % Band Neutrophils 1 (0.0-2.0) % Lymphocytes (Manual) 5 L (24-44) % Monocytes (Manual) 5 (0.0-12.0) % Eosinophils (Manual) 1 (0.00-3.0) % Atypical Lymphocytes 1 % Platelet Estimate NORMAL (NORMAL) RBC Morphology NORMAL Sodium (137-145) mmol/L Potassium (3.5-5.1) mmol/L Chloride (98-107) mmol/L Carbon Dioxide (22-30) mmol/L Anion Gap (5-15) MEQ/L BUN (7-17) mg/dL Creatinine (0.52-1.04) mg/dL Estimated GFR ML/MIN Glucose (74-106) mg/dL Lactic Acid (0.4-2.0) Calcium (8.4-10.2) mg/dL Ferritin 41.9 (6.24-137) ng/mL Total Bilirubin (0.2-1.3) mg/dL AST (14-36) U/L ALT (0-35) U/L Alkaline Phosphatase (38-126) U/L Lactate Dehydrogenase (120-246) U/L Serum Total Protein (6.3-8.2) g/dL Albumin (3.5-5.0) g/dL Amylase (30-110) U/L Lipase (23-300) U/L Urine Color (YELLOW) Urine Appearance (CLEAR) Urine pH (5-6) Ur Specific [place] (1.005-1.025) Urine Protein (Negative) Urine Ketones (NEGATIVE) Urine Blood (0-5) Dominick/ul Urine Nitrite (NEGATIVE) Urine Bilirubin (NEGATIVE) Urine Urobilinogen (0-1) mg/dL Ur Leukocyte Esterase (NEGATIVE) Urine WBC (Auto) (0-5) /HPF Urine RBC (Auto) (0-2) /HPF U Epithel Cells (Auto) (FEW) /HPF Urine Bacteria (Auto) (NEGATIVE) /HPF Urine Mucus (Auto) (NEGATIVE) /HPF Urine Culture Reflexed (NO) Urine Glucose (NEGATIVE) mg/dL Urine HCG, Qual (Negative) Monoscreen NEGATIVE (Negative) Influenza Type A Ag (NEGATIVE) Influenza Type B Ag (NEGATIVE) SARS-CoV-2 Ag (Rapid) (NEGATIVE) 10/27/21 10/27/21 Range/Units 03:18 03:01 WBC (4.0-10.5) K/mm3 RBC (4.1-5.4) M/mm3 Hgb (12.0-16.0) gm/dl Hct (35-47) % MCV (78-100) fl MCH (26-32) pg MCHC (32-36) g/dl RDW (11.5-14.0) % Plt Count (150-450) K/mm3 MPV (7.5-11.0) fl Segmented Neutrophils (36.0-66.0) % Band Neutrophils (0.0-2.0) % Lymphocytes (Manual) (24-44) % Monocytes (Manual) (0.0-12.0) % Eosinophils (Manual) (0.00-3.0) % Atypical Lymphocytes % Platelet Estimate (NORMAL) RBC Morphology Sodium 139 (137-145) mmol/L Potassium 3.9 (3.5-5.1) mmol/L Chloride 99 (98-107) mmol/L Carbon Dioxide 26 (22-30) mmol/L Anion Gap 18.2 H (5-15) MEQ/L BUN 12 (7-17) mg/dL Creatinine 0.74 (0.52-1.04) mg/dL Estimated GFR > 60.0 ML/MIN Glucose 106 (74-106) mg/dL Lactic Acid 1.1 (0.4-2.0) Calcium 10.0 (8.4-10.2) mg/dL Ferritin (6.24-137) ng/mL Total Bilirubin 0.90 (0.2-1.3) mg/dL AST 22 (14-36) U/L ALT 14 (0-35) U/L Alkaline Phosphatase 109 (38-126) U/L Lactate Dehydrogenase 196 (120-246) U/L Serum Total Protein 8.4 H (6.3-8.2) g/dL Albumin 5.1 H (3.5-5.0) g/dL Amylase 93 (30-110) U/L Lipase 78 (23-300) U/L Urine Color (YELLOW) Urine Appearance (CLEAR) Urine pH (5-6) Ur Specific [place] (1.005-1.025) Urine Protein (Negative) Urine Ketones (NEGATIVE) Urine Blood (0-5) Dominick/ul Urine Nitrite (NEGATIVE) Urine Bilirubin (NEGATIVE) Urine Urobilinogen (0-1) mg/dL Ur Leukocyte Esterase (NEGATIVE) Urine WBC (Auto) (0-5) /HPF Urine RBC (Auto) (0-2) /HPF U Epithel Cells (Auto) (FEW) /HPF Urine Bacteria (Auto) (NEGATIVE) /HPF Urine Mucus (Auto) (NEGATIVE) /HPF Urine Culture Reflexed (NO) Urine Glucose (NEGATIVE) mg/dL Urine HCG, Qual (Negative) Monoscreen (Negative) Influenza Type A Ag (NEGATIVE) Influenza Type B Ag (NEGATIVE) SARS-CoV-2 Ag (Rapid) (NEGATIVE) - Progress Progress: improved, re-examined Air Movement: good Progress Note: 10/27/21 06:24 Medical decision making: This patient's symptoms are likely due to viral illness. Her serology panel is negative. Her white count is likely significantly high secondary to the multiple episodes of acute vomiting that she has experienced prior to arrival and at initial arrival here. Since we gave her 2 L of fluid and the Compazine antiemetic, she has not vomited once. She has been resting comfortably for over 2 hours. We will discharge her to home with a prescription for antiemetics. Blood Culture(s) Obtained: Yes Antibiotics given: No Counseled pt/family regarding: lab results, diagnosis, need for follow-up - Departure Departure Disposition: Home Clinical Impression: Viral illness, Vomiting and diarrhea Condition: Stable Critical Care Time: No Referrals: ADEN RIVERO NP [Primary Care Provider] - Follow up/PCP as directed Additional Instructions: Drink plenty of fluids. Take the antinausea medicine as prescribed. Follow-up with your primary care physician for further management Prescriptions: Ondansetron ODT 4 MG [Zofran Odt 4 mg] 4 mg PO Q6H PRN PRN #10 tablet PRN Reason: Vomiting
[2021-10-27] MEDS ORDERED: Compazine 10 MG/2 ML ONE (03:01)
[2021-10-27] MEDS ORDERED: Sodium Chloride 0.9% 1000 ML 1,000 ML ONE ×2 (03:01→04:37)
[2021-10-27] MEDS: Compazine 10 MG/2 ML IV ONE (03:10)
[2021-10-27] MEDS: Sodium Chloride 0.9% 1000 ML 1,000 ML IV STA ×2 (03:12→04:40)
[2021-10-27 03:26] LABS: Hematocrit 51.9 % (35-47); Hemoglobin 17.3 gm/dl (12.0-16.0); Mean Cell Volume 89.3 fl (78-100); Mean Corpuscular Hemoglobin 29.8 pg (26-32); Mean Corpuscular Hgb Concent. 33.3 g/dl (32-36); Platelet Count 321 K/mm3 (150-450); Red Blood Count 5.81 M/mm3 (4.1-5.4); Red Cell Distribution Width 13.7 % (11.5-14.0); White Blood Count 23.4 K/mm3 (4.0-10.5)
[2021-10-27 03:40] LABS: ALBUMIN 5.1 g/dL (3.5-5.0); ALKALINE PHOSPHATASE 109 U/L (38-126); AMYLASE 93 U/L (30-110); ANION GAP 18.2 MEQ/L (5-15); BLOOD UREA NITROGEN 12 mg/dL (7-17); CHLORIDE 99 mmol/L (98-107); Carbon Dioxide 26 mmol/L (22-30); Creatinine 1 0.74 mg/dL (0.52-1.04); EST GLOMERULAR FILTRATION RATE > 60.0 ML/MIN; Glucose 106 mg/dL (74-106); LDH-LACTATE DEHYDROGENASE 196 U/L (120-246); LIPASE 78 U/L (23-300); Potassium 3.9 mmol/L (3.5-5.1); SGOT/AST 22 U/L (14-36); SGPT/ALT 14 U/L (0-35); SODIUM 139 mmol/L (137-145); Total Protein 8.4 g/dL (6.3-8.2)
[2021-10-27 03:47] LABS: INFLUENZA A NEGATIVE (NEGATIVE); INFLUENZA B NEGATIVE (NEGATIVE)
[2021-10-27 03:48] LABS: COVID AG -BINAX NOW RAPID TEST NEGATIVE (NEGATIVE)
[2021-10-27 04:06] LABS: ATYPICAL LYMPHS 1 %; BAND 1 % (0.0-2.0); Eosinophil 1 % (0.00-3.0); Lymphocytes 5 % (24-44); Monocyte 5 % (0.0-12.0); Neutrophils 87 % (36.0-66.0); Platelet Estimate NORMAL (NORMAL); Total Cells Counted 100
[2021-10-27 04:23] LABS: HCG,QUALITATIVE URINE NEGATIVE (Negative)
[2021-10-27 04:25] LABS: Appearance SLIGHTLY CLOUDY (CLEAR); Bacteria RARE /HPF (NEGATIVE); Bilirubin NEGATIVE (NEGATIVE); Blood NEGATIVE Ery/ul (0-5); Epithelial Cells RARE /HPF (FEW); Glucose NEGATIVE (NEGATIVE); Ketones SMALL (NEGATIVE); Leukocyte Esterase NEGATIVE (NEGATIVE); Mucus SLIGHT /HPF (NEGATIVE); Nitrite NEGATIVE (NEGATIVE); Protein,Urine Dip 30 (Negative); RBC 0-2 /HPF (0-2); Specific Gravity 1.029 (1.005-1.025); Urobilinogen NEGATIVE mg/dL (0-1); WBC 0-2 /HPF (0-5)
[2021-10-27 06:39] VITALS: BP 116/75; PULSE 102; O2SAT 98
== END 2021-10-27 06:45 | disposition home or self-care (01) ==
LOC: ED 02:42
DX: B34.9 Viral infection, unspecified (principal); R11.2 Nausea with vomiting, unspecified; R19.7 Diarrhea, unspecified; Z20.822 Contact with and (suspected) exposure to COVID-19; M79.10 Myalgia, unspecified site; F41.9 Anxiety disorder, unspecified; Z79.01 Long term (current) use of anticoagulants; Z79.899 Other long term (current) drug therapy
CPT/HCPCS: 36000; 36415; 80053; 81001; 82150; 82728; 83605; 83615; 83690; 84703; 85025; 86308; 87040; 87400; 96360; 96374; 99000; 99284

== ENCOUNTER 2023-01-03 22:37 | Emergency (ER) | payer BC ==
--- NOTE | 2023-01-03 22:41 | ERPHSYRPT ---
- History of Present Illness Time Seen by Provider: 01/03/23 22:40 Source: patient Exam Limitations: no limitations Physician History: This is a 27-year-old white female patient who thinks she may be 6 to 8 weeks . She does not know exactly when her last menstrual period was. She did had some spotting in November. 2 weeks ago, approximately, she took a test at home which was positive. Approxi-1 week ago she went to [facility] and a second test was positive. In the last 2 to 3 days she has noticed increasing and worsening intense pain in the suprapubic region. She has not had any bleeding in the last 2 days of any kind. There is pain and pressure when she urinates. Patient has not seen an seismograph chief. Timing/Duration: day(s), worse Quality: sharpness, stabbing Onset Location: suprapubic Pain Radiation: none Severity of Pain-Max: mild Severity of Pain-Current: mild (Moderate) Sexual intercourse history: non-contributory Modifying Factors: Improves With: urinating (Painful) Associated Symptoms: Allergies/Adverse Reactions: No Known Drug Allergies Allergy (Verified 01/03/23 23:06) Home Medications: Dextroamphetamine/Amphetamine [Adderall 30 mg Tablet] 1 tab PO BID PRN 06/08/21 [History] lamoTRIgine [Lamictal] 25 mg PO DAILY 07/23/21 [History] norgestimate-ethinyl estradioL [Tri Femynor 28 Tablet] 1 tab PO DAILY 10/27/21 [History] Hx Tetanus, Diphtheria Vaccination/Date Given: Yes Hx Influenza Vaccination/Date Given: Yes Hx Pneumococcal Vaccination/Date Given: No Travel Risk - International Travel Have you traveled outside of the country in past 3 weeks: No - Coronavirus Screening Are you exhibiting any of the following symptoms?: No Close contact with a COVID-19 positive Pt in past 14-21 Days: No - Vaccine Status Have you recieved a Covid-19 vaccination: No - Review of Systems Constitutional: No Symptoms Eyes: No Symptoms Ears, Nose, & Throat: No Symptoms Respiratory: No Symptoms Cardiac: No Symptoms Abdominal/Gastrointestinal: Abdominal Pain (Prepubic) Genitourinary Symptoms: Dysuria Skin: No Symptoms Neurological: No Symptoms Psychological: No Symptoms Endocrine: No Symptoms Hematologic/Lymphatic: No Symptoms - Past Medical History Pertinent Past Medical History: No Neurological History: No Pertinent History ENT History: No Pertinent History Cardiac History: No Pertinent History Respiratory History: Other Endocrine Medical History: No Pertinent History Musculoskeletal History: No Pertinent History GI Medical History: Other History: No Pertinent History Psycho-Social History: Anxiety, Bipolar, Depression Female Reproductive Disorders: No Pertinent History Other Medical History: Current everyday smoker. Hx of stomach pain and vomiting after meals. Pt bruises easily. - Past Surgical History Past Surgical History: Yes Neuro Surgical History: No Pertinent History Cardiac: No Pertinent History Respiratory: No Pertinent History Gastrointestinal: No Pertinent History Genitourinary: No Pertinent History Musculoskeletal: No Pertinent History Female Surgical History: Section Other Surgical History: x 1. - Social History Smoking Status: Current every day smoker How long have you smoked: 8 years Exposure to second hand smoke: No Drug Use: none Patient Lives Alone: No Significant Family History: no pertinent family hx - Nursing Vital Signs Nursing Vital Signs: Initial Vital Signs Temperature 98.5 F 01/03/23 22:46 Pulse Rate 112 H 01/03/23 22:46 Respiratory Rate 16 01/03/23 22:46 Blood Pressure 137/88 01/03/23 22:46 O2 Sat by Pulse Oximetry 99 01/03/23 22:46 Pain Scale Pain Intensity 4 - Physical Exam General Appearance: no apparent distress, alert, anxiety Eye Exam: PERRL/EOMI, eyes nml inspection Ears, Nose, Throat Exam: normal ENT inspection, moist mucous membranes Neck Exam: normal inspection, non-tender, supple, full range of motion Respiratory Exam: normal breath sounds, lungs clear, No chest tenderness, No respiratory distress Cardiovascular Exam: tachycardia Gastrointestinal/Abdomen Exam: soft, normal bowel sounds, tenderness, No guarding, No rebound Pelvic Exam: not done Rectal Exam: not done Back Exam: normal inspection, normal range of motion, No CVA tenderness, No vertebral tenderness Extremity Exam: normal inspection, normal range of motion, pelvis stable Neurologic Exam: alert, oriented x 3, cooperative, stone polisher hand II-XII nml as tested, normal mood/affect, nml cerebellar function, nml station & gait, sensation nml Skin Exam: normal color, warm, dry Lymphatic Exam: No adenopathy SpO2 Interpretation: normal O2 Delivery: Room Air - Course Nursing assessment & vital signs reviewed: Yes Ordered Tests: Active Orders 24 hr Category Date Time Status OB <14 WKS 1ST GESTATION [US] Stat Exams 01/04/23 23:23 Ordered HCG QUALITATIVE, URINE Stat Lab 01/03/23 23:11 Completed UA W/RFX UR CULTURE Stat Lab 01/03/23 22:46 Completed Lab/Rad Data: Laboratory Results 01/03/23 01/03/23 Range/Units 23:11 22:46 Urine Color Yellow (Yellow) Urine Appearance Clear (Clear) Urine pH 6.5 (4.6-8.0) Ur Specific [place] 1.015 (1.005-1.030) Urine Protein Negative (Negative) Urine Glucose (UA) Negative (Negative) mg/dL Urine Ketones 15 A (Negative) Urine Blood Negative (Negative) Urine Nitrite Negative (Negative) Urine Bilirubin Negative (Negative) Urine Urobilinogen 0.2 (0.2) mg/dL Ur Leukocyte Esterase Negative (Negative) U Hyaline Cast (Auto) NONE SEEN (0-2) /LPF Urine Microscopic RBC 0-2 (0-5) /HPF Urine Microscopic WBC 0-2 (0-5) /HPF Ur Epithelial Cells None Seen (None Seen) /HPF Urine Bacteria None Seen (None Seen) /HPF Urine Culture Reflexed NO (NO) Urine HCG, Qual POSITIVE (NEGATIVE) - Progress Air Movement: good Progress Note: 01/04/23 00:29 Vaginal ultrasound results reported to me by the lab animal technologist. No evidence of ectopic . No abnormal adnexa. Small gestational sac within the fundus of the uterus. Blood Culture(s) Obtained: No Antibiotics given: No Counseled pt/family regarding: lab results, diagnosis, need for follow-up, rad results Medical Desision Making - Discussion of managment Agreed on:: Treatment plan, need for follow-up - Diagnostic Testing Diagnostic test were ordered, analyzed, and reviewed by me: Yes Radiological Interpretation: Reviewed by me, Teleradiologist Report - Risk of complications Low Risk: Low risk of morbidity from additional dx testing or treatment - Departure Departure Disposition: Home Clinical Impression: with suprapubic pain, antepartum Condition: Stable Critical Care Time: No Referrals: ADEN RIVERO NP [Primary Care Provider] - Follow up/PCP as directed Additional Instructions: Drink plenty of fluids. Use Tylenol for pain control. Follow-up with your seismograph chief today by phone to make arranges for follow-up appointment.
[2023-01-03 23:04] VITALS: PULSE 112; O2SAT 99
[2023-01-03 23:05] LABS: Appearance Clear (Clear); Bacteria None Seen /HPF (None Seen); Bilirubin Negative (Negative); Blood Negative (Negative); Epithelial Cells None Seen /HPF (None Seen); Glucose, Urine Negative (Negative); Hyaline Casts NONE SEEN /LPF (0-2); Ketones 15 (Negative); Leukocyte Esterase Negative (Negative); Nitrite Negative (Negative); Ph 6.5 (4.6-8.0); Protein,Urine Dip Negative (Negative); RBC 0-2 /HPF (0-5); Specific Gravity 1.015 (1.005-1.030); Urobilinogen 0.2 mg/dL (0.2); WBC 0-2 /HPF (0-5)
[2023-01-03 23:15] LABS: ADD URINE CULTURE? NO (NO)
[2023-01-03 23:16] LABS: HCG URINE TEST POSITIVE (NEGATIVE)
[2023-01-04 00:41] VITALS: BP 131/79
--- NOTE | 2023-01-04 08:46 | XRAY ---
Indication: Pain. Positive test. Two-dimensional transvaginal early OB ultrasound performed. Comparison: None for this Single intrauterine gestational sac with mean sac diameter 0.48 cm corresponding to 5 weeks 0 days. No pole/heart tones presumed early . Both ovaries are sonographically unremarkable. No suspicious adnexal mass or free fluid. Impression: Single intrauterine gestational sac measuring 5 weeks 0 days. No pole/heart tones presumed early . Correlate with serial beta hCG and follow-up sonogram regarding viability. Comment: Preliminary report was given.
== END 2023-01-04 00:44 | disposition home or self-care (01) ==
LOC: ED 22:37
DX: O26.891 Other specified pregnancy related conditions, first trimester (principal); Z3A.01 Less than 8 weeks gestation of pregnancy; R10.2 Pelvic and perineal pain; R30.0 Dysuria; Z79.899 Other long term (current) drug therapy; Z28.310 Unvaccinated for COVID-19; Z72.0 Tobacco use
CPT/HCPCS: 36415; 76801; 81001; 81025; 99283

== ENCOUNTER 2023-01-29 19:09 | Emergency (ER) | payer BC ==
[2023-01-29 19:40] VITALS: BP 130/70; PULSE 86; O2SAT 100
[2023-01-29] MEDS ORDERED: KEFLEX 500 MG PO ONE (19:43)
--- NOTE | 2023-01-29 19:45 | ERPHSYRPT ---
- History of Present Illness Time Seen by Provider: 01/29/23 19:39 Source: patient Exam Limitations: no limitations Physician History: Minor infection symptoms right nipple area, had a piercing there until about 2 months ago. It had some redness and drained a bit earlier. She is about 9 weeks without complication. Allergies/Adverse Reactions: No Known Drug Allergies Allergy (Verified 01/03/23 23:06) Hx Tetanus, Diphtheria Vaccination/Date Given: Yes Hx Influenza Vaccination/Date Given: Yes Hx Pneumococcal Vaccination/Date Given: No Travel Risk - Vaccine Status Have you recieved a Covid-19 vaccination: No - Review of Systems Constitutional: No Symptoms Eyes: No Symptoms Ears, Nose, & Throat: No Symptoms Respiratory: No Symptoms Cardiac: No Symptoms Abdominal/Gastrointestinal: No Symptoms Genitourinary Symptoms: No Symptoms Musculoskeletal: No Symptoms Skin: No Symptoms Neurological: No Symptoms Psychological: No Symptoms Endocrine: No Symptoms Hematologic/Lymphatic: No Symptoms Immunological/Allergic: No Symptoms All Other Systems: Reviewed and Negative - Past Medical History Pertinent Past Medical History: No Neurological History: No Pertinent History ENT History: No Pertinent History Cardiac History: No Pertinent History Respiratory History: Other Endocrine Medical History: No Pertinent History Musculoskeletal History: No Pertinent History GI Medical History: Other History: No Pertinent History Psycho-Social History: Anxiety, Bipolar, Depression Female Reproductive Disorders: No Pertinent History Other Medical History: Current everyday smoker. Hx of stomach pain and vomiting after meals. Pt bruises easily. - Past Surgical History Past Surgical History: Yes Neuro Surgical History: No Pertinent History Cardiac: No Pertinent History Respiratory: No Pertinent History Gastrointestinal: No Pertinent History Genitourinary: No Pertinent History Musculoskeletal: No Pertinent History Female Surgical History: Section Other Surgical History: x 1. - Social History Smoking Status: Current every day smoker How long have you smoked: 8 years Exposure to second hand smoke: No Drug Use: none Patient Lives Alone: No Significant Family History: no pertinent family hx - Physical Exam General Appearance: no apparent distress Eye Exam: PERRL/EOMI Ears, Nose, Throat Exam: normal ENT inspection Neck Exam: normal inspection Respiratory Exam: normal breath sounds, lungs clear Cardiovascular Exam: regular rate/rhythm, normal heart sounds Gastrointestinal/Abdomen Exam: soft, normal bowel sounds Pelvic Exam: not done Rectal Exam: not done Back Exam: normal inspection Extremity Exam: normal inspection, normal range of motion Neurologic Exam: alert, oriented x 3 Skin Exam: normal color, warm, dry, other (exam of right breast does not show any external sign of infection, piercing site a tiny bit inflamed) - Course Nursing assessment & vital signs reviewed: Yes - Progress Progress: unchanged Progress Note: 01/29/23 19:42 Minor infection right nipple area by hx, source probably the piercing, needs abx and heat, recheck Counseled pt/family regarding: diagnosis, need for follow-up - Departure Departure Disposition: Home Clinical Impression: Mastitis in female Condition: Stable Critical Care Time: No Referrals: ADEN RIVERO NP [Primary Care Provider] - Follow up/PCP as directed Instructions: Cellulitis (Skin Infection), Adult ED Additional Instructions: Take the antibiotic, apply frequent warm compresses, recheck if not better. Prescriptions: Cephalexin Mh 500 mg [Keflex 500 mg] 500 mg PO TID 7 Days #21 cap
[2023-01-29] MEDS ORDERED: KEFLEX 500 MG ONE (19:56)
== END 2023-01-29 20:03 | disposition home or self-care (01) ==
LOC: ED 19:09
DX: N61.0 Mastitis without abscess (principal); Z33.1 Pregnant state, incidental; Z28.310 Unvaccinated for COVID-19; Z72.0 Tobacco use
CPT/HCPCS: 99281; A9270-GY